=== PATIENT | male | born 1955 | race American Indian/Alaskan Native ===

== ENCOUNTER 2019-08-07 15:50 | Inpatient (IN) | payer OTHER ==
[2019-08-07] MEDS ORDERED: MAGNESIUM SULFATE 2 GM/50 ML BAG IV ONE (16:25)
[2019-08-07] MEDS ORDERED: SODIUM CHLORIDE 0.9% 500 ML 500 ML IV ONE ×2 (16:25→17:15)
[2019-08-07] MEDS ORDERED: ALBUTEROL 2.5 MG/3 ML NEBU IH ONE (16:25)
[2019-08-07] MEDS ORDERED: IPRATROPIUM 0.02% NEBU 2.5 ML IH ONE (16:25)
[2019-08-07] MEDS ORDERED: methylPREDNISolone Sod Succinate 125 MG/2 ML INJ IV ONE (16:25)
--- NOTE | 2019-08-07 16:26 | Emergency Department Report ---
ED General Adult HPI - General Chief complaint: Dyspnea/Respdistress Stated complaint: ANDRES Time Seen by Provider: 08/07/19 16:17 Source: patient, EMS ( EMS documentation not available at time of chart dictation ), RN notes reviewed Mode of arrival: Stretcher Limitations: Physical Limitation - History of Present Illness Initial comments: Patient is a pleasant 63-year-old gentleman. He is not known to myself previously. His past medical history includes tobacco consumption, COPD and hypertension. He presents to the ER with shortness of breath. It started this past weekend. Endorses cough with yellow mucus. Denies physical pain. Denies DVT and pulmonary embolism risk factors. Endorses cough, wheezing and shortness of breath. EMS gave the patient albuterol and steroids prior to arrival. He is still wheezing and symptomatic at this time. -: Gradual, days(s) Consistency: constant Improves with: rest Worsens with: movement - Related Data Allergies Allergy/AdvReac Type Severity Reaction Status Date / Time Penicillins Allergy Unknown Verified 08/07/19 16:35 ED Review of Systems ROS: Stated complaint: ANDRES Other details as noted in HPI Constitutional: malaise, weakness Eyes: denies: eye discharge ENT: congestion Respiratory: cough, shortness of breath, SOB with exertion, SOB at rest, wheezing Cardiovascular: denies: chest pain Gastrointestinal: denies: nausea, vomiting Genitourinary: denies: dysuria Musculoskeletal: myalgia Skin: denies: lesions Neurological: weakness Hematological/Lymphatic: denies: easy bleeding ED Past Medical Hx - Past Medical History Previous Medical History?: Yes Hx Hypertension: Yes Hx COPD: Yes - Surgical History Past Surgical History?: No - Social History Smoking Status: Current Every Day Smoker Substance Use Type: None ED Physical Exam - General Limitations: Physical Limitation General appearance: alert, anxious, in distress - Head Head exam: Present: atraumatic, normocephalic - Eye Eye exam: Present: normal appearance, EOMI. Absent: nystagmus - ENT ENT exam: Present: normal orophraynx, mucous membranes dry, normal external ear exam - Neck Neck exam: Present: normal inspection, full ROM. Absent: tenderness, meningismus - Respiratory Respiratory exam: Present: respiratory distress, wheezes, rhonchi, accessory muscle use. Absent: rales, stridor - Cardiovascular Cardiovascular Exam: Present: regular rate, normal rhythm, normal heart sounds. Absent: bradycardia, tachycardia, irregular rhythm, systolic murmur, diastolic murmur, rubs, gallop - GI/Abdominal GI/Abdominal exam: Present: soft. Absent: distended, tenderness, guarding, rebound, rigid, pulsatile mass - Rectal Rectal exam: Present: deferred - Extremities Exam Extremities exam: Present: normal inspection, full ROM, other (2+ pulses noted in the bilateral upper and lower extremities. There is no palpable cord. negative Homans sign. Muscular compartments are soft. The pelvis is stable.). Absent: calf tenderness - Back Exam Back exam: Present: normal inspection, full ROM. Absent: tenderness, CVA tenderness (R), CVA tenderness (L), paraspinal tenderness, vertebral tenderness - Neurological Exam Neurological exam: Present: alert, other (There is no facial droop. The tongue is midline. Extraocular movements are intact bilaterally. There is 5 out of 5 strength in bilateral upper and lower extremities. Sensation is intact to light touch bilateral upper and lower extremities. ). Absent: motor sensory deficit - Psychiatric Psychiatric exam: Present: anxious - Skin Skin exam: Present: warm, dry, intact, normal color. Absent: rash ED Course Vital Signs 08/07/19 08/07/19 08/07/19 16:23 16:50 17:01 Temperature 100.0 F H Pulse Rate 96 H Pulse Rate [ 93 H Bilateral] Respiratory 18 Rate Respiratory 32 H Rate [Bilateral ] Blood Pressure 135/85 [Right] O2 Sat by Pulse 98 96 Oximetry - Reevaluation(s) Reevaluation #1: 08/07/19 16:55 Differential diagnosis, including but not limited to: COPD, asthma, bronchitis, pneumonia Assessment and plan: Pleasant 63-year-old gentleman with probable COPD exacerbation, with no DVT or pulmonary embolism risk factors, who is low risk by Wells criteria. X-ray of the chest suggest pneumonia versus atelectasis. We will treat him with albuterol, Atrovent, magnesium and fluids, and we will reassess. He was given steroids prior to arrival in the emergency room Reevaluation #2: 08/07/19 18:27 Patient having persistent wheezing. X-ray shows bilateral pneumonia. Given bilateral pneumonia concomitant COPD, heart rate greater than 90, respiratory rate 32, patient meets sirs criteria, with COPD exacerbation. We have recommended admission to the medical service. He is amenable to his hospitalization. Case is presented to the hospital physician, Dr. Flynn. ED Medical Decision Making - Lab Data Result diagrams: 08/07/19 17:26 08/07/19 17:26 Vital Signs 08/07/19 16:23 O2 Sat by Pulse 98 Oximetry Vital Signs 08/07/19 08/07/19 08/07/19 16:23 16:50 17:01 Temperature 100.0 F H Pulse Rate 96 H Pulse Rate [ 93 H Bilateral] Respiratory 18 Rate Respiratory 32 H Rate [Bilateral ] Blood Pressure 135/85 [Right] O2 Sat by Pulse 98 96 Oximetry Lab Results 08/07/19 08/07/19 08/07/19 Range/Units 17:26 17:26 17:26 WBC 8.9 (4.5-11.0) K/mm3 RBC 4.74 (3.65-5.03) M/mm3 Hgb 15.6 H (11.8-15.2) gm/dl Hct 45.5 (35.5-45.6) % MCV 96 H (84-94) fl MCH 33 H (28-32) pg MCHC 34 (32-34) % RDW 13.7 (13.2-15.2) % Plt Count 153 (140-440) K/mm3 PT 14.4 (12.2-14.9) Sec. INR 1.11 (0.87-1.13) Sodium 139 (137-145) mmol/L Potassium 4.2 (3.6-5.0) mmol/L Chloride 100.9 (98-107) mmol/L Carbon Dioxide 21 L (22-30) mmol/L Anion Gap 21 mmol/L BUN 13 (9-20) mg/dL Creatinine 0.9 (0.8-1.5) mg/dL Estimated GFR > 60 ml/min BUN/Creatinine Ratio 14 % Glucose 106 H (75-100) mg/dL Lactic Acid (0.7-2.0) mmol/L Calcium 9.2 (8.4-10.2) mg/dL Magnesium 2.90 H (1.7-2.3) mg/dL Total Creatine Kinase 239 H (55-170) units/L 08/07/19 Range/Units 17:26 WBC (4.5-11.0) K/mm3 RBC (3.65-5.03) M/mm3 Hgb (11.8-15.2) gm/dl Hct (35.5-45.6) % MCV (84-94) fl MCH (28-32) pg MCHC (32-34) % RDW (13.2-15.2) % Plt Count (140-440) K/mm3 PT (12.2-14.9) Sec. INR (0.87-1.13) Sodium (137-145) mmol/L Potassium (3.6-5.0) mmol/L Chloride (98-107) mmol/L Carbon Dioxide (22-30) mmol/L Anion Gap mmol/L BUN (9-20) mg/dL Creatinine (0.8-1.5) mg/dL Estimated GFR ml/min BUN/Creatinine Ratio % Glucose (75-100) mg/dL Lactic Acid 1.30 (0.7-2.0) mmol/L Calcium (8.4-10.2) mg/dL Magnesium (1.7-2.3) mg/dL Total Creatine Kinase (55-170) units/L - EKG Data -: EKG Interpreted by Me EKG shows normal: sinus rhythm Rate: normal - EKG Data When compared to previous EKG there are: previous EKG unavailable 08/07/19 17:06 There is no prior EKG available for comparison. Sinus rhythm, 97 bpm, left axis deviation, QTC prolonged, left anterior fascicular block, premature ventricular contractions. No endorsement of chest pain, not consistent with STEMI - Radiology Data Radiology results: image reviewed interpreted by me: X-ray of the chest, interpreted by me, COPD, hyperinflation, bibasilar atelectasis versus infiltrate, right greater than left Critical Care Time: Yes Critical care time in (mins) excluding proc time.: 35 Critical care attestation.: If time is entered above; I have spent that time in minutes in the direct care of this critically ill patient, excluding procedure time. ED Disposition Clinical Impression: COPD with acute exacerbation Bilateral pneumonia Qualifiers: Pneumonia type: due to unspecified organism Lung location: unspecified part of lung Qualified Code(s): J18.9 - Pneumonia, unspecified organism Disposition: 09 OP ADMIT IP TO THIS HOSP Is pt being admited?: Yes Does the pt Need Aspirin: No Condition: Good Instructions: Chronic Obstructive Pulmonary Disease (ED), Bacterial Pneumonia (ED)
[2019-08-07] MEDS ORDERED: ACETAMINOPHEN 500 MG TAB PO ONE (17:05)
--- NOTE | 2019-08-07 17:10 | XRay Report ---
CHEST 2 VIEWS INDICATION / CLINICAL INFORMATION: sob cough. COMPARISON: None available. FINDINGS: SUPPORT DEVICES: None. HEART / MEDIASTINUM: No significant abnormality. LUNGS / PLEURA: There are pulmonary opacities throughout both lower lobes. It is unclear if this repr esents interstitial pulmonary edema or infection. No significant pleural effusion. The lungs overall are mildly hyperinflated. No pneumothorax. ADDITIONAL FINDINGS: No significant additional findings. IMPRESSION: 1. The lungs are hyperinflated suggesting COPD. Additionally there are bilateral lower lobe pulmonary opacities. I would favor interstitial pulmonary edema over infection. Clinical correlation is recomm ended. Signer Name: Katlin Natarajan MD Signed: 08/07/2019 5:05 PM Workstation Name: [id number]
[2019-08-07] MEDS ORDERED: SODIUM CHLORIDE 0.9% 1000 ML 2,000 ML IV ONE (17:15)
[2019-08-07 17:54] LABS: Hematocrit 45.5 % (35.5-45.6); Hemoglobin 15.6 gm/dl (11.8-15.2); Mean Corpuscular HGB Conc 34 % (32-34); Mean Corpuscular Volume 96 fl (84-94); Platelet Count 153 K/mm3 (140-440); Red Blood Count 4.74 M/mm3 (3.65-5.03); Red Cell Distribution Width 13.7 % (13.2-15.2)
[2019-08-07 18:10] LABS: INR 1.11 (0.87-1.13)
[2019-08-07 18:16] LABS: BUN/Creatinine Ratio 14; Blood Urea Nitrogen 13 mg/dL (9-20); Calcium 9.2 mg/dL (8.4-10.2); Hemolysis Index 1
[2019-08-07] MEDS ORDERED: ONDANSETRON 4 MG/2 ML INJ IV PRN (19:48)
[2019-08-07] MEDS ORDERED: ACETAMINOPHEN 325 MG TAB PO PRN (19:48)
[2019-08-07] MEDS ORDERED: ALBUTEROL 2.5 MG/3 ML NEBU IH PRN (19:48)
--- NOTE | 2019-08-07 19:50 | History and Physical Report ---
History of Present Illness Chief complaint: I get short of breath real easy, I cannot breathe, and I keep coughing History of present illness: 63-year-old male with COPD, nicotine dependence, HTN presents to ED for eval uation. Patient states that he has experienced generalized weakness, productive cough with increased production of yellowish sputum over the past 2 weeks progressively worsening symptoms over the past 4 days. Patient states that he has not experienced any improvement in the aforementioned symptoms with increased nebulizer therapy. EMS notified and upon arrival the patient was found to have a pulse oximetry of 88% and in respiratory distress. The patient was transported to [facility] for further care and evaluation. Patient seen and evaluated in the emergency department. Lab and imaging studies reviewed. Chest x-ray revealed bilateral infiltrates consistent with pneumonia. Patient placed in observation status and admitted to medical floor and initiated on pneumonia protocol due to increased risk of pulmonary decompensation. Patient denies fever, chills, chest pain, palpitations, bright red blood per rectum, skin rash, unilateral leg swelling, calf pain, prolonged travel/immobility, in dividual/family history of DVT/PE/bleeding/blood clotting disorders, or known ill contacts. No prior admission for review. No medication listed at time of admission for reconciliation. Advanced care planning conducted in ED. Medications and Allergies Allergies Allergy/AdvReac Type Severity Reaction Status Date / Time Penicillins Allergy Unknown Verified 08/07/19 16:35 Exam - Constitutional Vitals: Temp Pulse Resp BP Pulse Ox 100.0 F H 102 H 19 153/81 95 08/07/19 17:01 08/07/19 18:45 08/07/19 18:45 08/07/19 18:45 08/07/19 18:45 Results - Labs CBC & Chem 7: 08/07/19 17:26 08/07/19 17:26 Labs: Abnormal lab results 08/07/19 08/07/19 Range/Units 17:26 17:26 Hgb 15.6 H (11.8-15.2) gm/dl MCV 96 H (84-94) fl MCH 33 H (28-32) pg Carbon Dioxide 21 L (22-30) mmol/L Glucose 106 H (75-100) mg/dL Magnesium 2.90 H (1.7-2.3) mg/dL Total Creatine Kinase 239 H (55-170) units/L Assessment and Plan - Patient Problems (1) Bilateral pneumonia Current Visit: Yes Status: Acute Qualifiers: Pneumonia type: due to unspecified organism Lung location: lower lobe of lung Qualified Code(s): J18.9 - Pneumonia, unspecified organism Plan to address problem: Pneumonia protocol: Chest x-ray, supplemental oxygen, nebulizer therapy, CBC, CMP, IV antibiotic therapy, pulse oximetry, blood culture, sputum culture, smoking cessation counseling. (2) HTN (hypertension) Current Visit: Yes Status: Acute Qualifiers: Hypertension type: essential hypertension Qualified Code(s): I10 - Essential (primary) hypertension Plan to address problem: Monitor BP every shift, continue medical management. (3) Nicotine dependence Current Visit: Yes Status: Acute Qualifiers: Nicotine product type: cigarettes Substance use status: in withdrawal Qualified Code(s): F17.213 - Nicotine dependence, cigarettes, with withdrawal Plan to address problem: Supportive care, smoking cessation counseling, +15 minutes (4) Respiratory distress Current Visit: Yes Status: Acute Plan to address problem: ABG, submental oxygen, nebulizer therapy, Hydromet for recurrent cough, chest x- ray, home oxygen evaluation in a.m. (5) COPD with acute exacerbation Current Visit: Yes Status: Acute Plan to address problem: Empiric IV antibiotic therapy, IV steroid therapy, chest x-ray, smoking cessation counseling, pulse oximetry, nebulizer therapy, noninvasive positive pressure ventilation as clinically indicated. (6) DVT prophylaxis Current Visit: Yes Status: Acute Plan to address problem: SCD to bilateral lower extremities while in bed, patient is ambulatory.
[2019-08-07] MEDS ORDERED: VANCOMYCIN 2,000 MG in SODIUM CHLORIDE 0.9% 500 ML 500 ML IV ONE (20:00)
[2019-08-07] MEDS ORDERED: VANCOMYCIN PHARMACY TO DOSE IV SCH (20:00)
[2019-08-07 23:02] LABS: Hemoglobin 15.2 gm/dl (11.8-15.2); Red Blood Count 4.65 M/mm3 (3.65-5.03)
[2019-08-07 23:03] LABS: Hematocrit 44.5 % (35.5-45.6); Mean Corpuscular HGB Conc 34 % (32-34); Mean Corpuscular Volume 96 fl (84-94); Mean Platelet Volume 9.3 fl (6-12); Platelet Count 146 K/mm3 (140-440); Red Cell Distribution Width 14.2 % (13.2-15.2)
[2019-08-07] MEDS ORDERED: ACETAMINOPHEN 325 MG TAB ONE (23:35)
[2019-08-07] MEDS: SODIUM CHLORIDE 0.9% 1000 ML 1,000 ML IV SCH (23:55)
[2019-08-08 00:53] LABS: Basophils % (Manual) 0 % (0.0-1.8); Eosinophils % (Manual) 0 % (0.0-4.3); Monocytes % (Manual) 0 % (0.0-7.3); Total Cells Counted 100
[2019-08-08 00:54] LABS: Anisocytosis Few
[2019-08-08 00:55] LABS: Platelet Estimate Consistent w Auto
[2019-08-08] MEDS: HYDROcodone/HOMATROPINE 5-1.5MG /5 ML ORAL LIQD UNIT DOSE PO PRN ×2 (01:38→15:43)
[2019-08-08] MEDS: SODIUM CHLORIDE 0.9% 1000 ML 1,000 ML IV SCH ×2 (01:41→15:44)
[2019-08-08 04:50] LABS: Basophils % (Auto) 0.2 % (0.0-1.8); Hematocrit 44.4 % (35.5-45.6); Hemoglobin 15.3 gm/dl (11.8-15.2); Lymphocytes # (Auto) 0.6 K/mm3 (1.2-5.4); Lymphocytes % (Auto) 8.3 % (13.4-35.0); Mean Corpuscular HGB Conc 35 % (32-34); Mean Corpuscular Volume 95 fl (84-94); Monocytes # (Auto) 0.2 K/mm3 (0.0-0.8); Monocytes % (Auto) 2.7 % (0.0-7.3); Platelet Count 155 K/mm3 (140-440); Red Blood Count 4.67 M/mm3 (3.65-5.03); Red Cell Distribution Width 13.7 % (13.2-15.2)
[2019-08-08 05:11] LABS: BUN/Creatinine Ratio 19; Blood Urea Nitrogen 17 mg/dL (9-20); Calcium 9.5 mg/dL (8.4-10.2); Hemolysis Index 4
[2019-08-08] MEDS ORDERED: ALBUTEROL 2.5 MG/3 ML NEBU IH PRN (07:44)
--- NOTE | 2019-08-08 07:45 | Progress Note ---
Assessment and Plan Assessment and plan: Patient is a 64 yo man with a history of tobacco dependency, COPD and hypertension who presents to [facility] ED with sob and cough. EMS found pulse ox 88%. HR 102 T 100.0F, RR up to 27. * CXR 2v Impression: The lungs are hyperinflated suggesting COPD, additionally there are bilateral lower lobe opacities, favor interstitial pulmonary edema over infection. * CT chest without contrast IMPRESSION: 1. Left lower lobe pulmonary nodule- "incidental pulmonary nodule" 1.03 cm, please see recommended guidelines 2. Diffuse chronic lung disease as noted 3. Mediastinal lymphadenopathy 4. B ilateral nephrolithiasis 5. Right renal cyst 6 hepatic cyst. [Solid nodules Single Single solid nodule <6 mm (<100 mm3) low-risk patients: no routine follow-up required high-risk patients: optional CT at 12 months (particularly with suspicious nodule morphology and/or upper lobe location; see "risk assessment" below) Solitary solid nodule 6-8 mm (100-250 mm3) low-risk patients: CT at 6-12 months, then [address] CT at 18-24 months high-risk patients: CT at 6-12 months, then CT at 18-24 months Solitary solid nodule >8 mm (>250 mm3) low-risk and high-risk patients: consider CT at 3 months, PET/CT, or tissue sampling] Acute hypoxic respiratory failure: treat with O2, treat the underlying copd AE COPD: iv steriod, duoneb, empiric abx SIRS, with organ dysfunction, poa; treat the COPD Left Lung nodule: consulted Pulmonology Tobacco dependency: 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 History Interval history: Patient was seen and examined. Follow-up on current diagnosis of COPD. Overnight uneventful as no events directly reported to me. Patient denies any chest pain, nausea/vomiting or severe headaches. Imaging, nursing note, chart, labs and old chart reviewed. Discussed with patient. Hospitalist Physical - Physical exam Narrative exam: Gen: WDWN, NAD, Awake, Alert, Orientated HEENT: NCAT, EOMI, PERRL, OP Clear Neck: supple, no adenopathy, no thyromegaly, no JVD CVS/Heart: RRR, normal S1S2, pulses present bilaterally Chest/Lungs: diminished bs bilaterally, Symmetrical chest expansion, good air entry bilaterally GI/Abdomen: soft, NTND, good bowel sounds, no guarding or rebound /Bladder: no suprapubic tenderness, no CVA or paraspinal tenderness Extermity/Skin: no c/c/e, no obvious rash MSK: FROM x 4 Neuro: CN 2-12 grossly intact, no new focal deficits Psych: calm - Constitutional Vitals: Temp Pulse Resp BP Pulse Ox 97.6 F 72 20 153/99 99 08/08/19 06:16 08/08/19 07:32 08/08/19 07:32 08/08/19 06:16 08/08/19 07:38 Results - Labs CBC & Chem 7: 08/08/19 04:31 08/08/19 04:31 Labs: Laboratory Last Values WBC 6.7 K/mm3 (4.5-11.0) 08/08/19 04:31 RBC 4.67 M/mm3 (3.65-5.03) 08/08/19 04:31 Hgb 15.3 gm/dl (11.8-15.2) H 08/08/19 04:31 Hct 44.4 % (35.5-45.6) 08/08/19 04:31 MCV 95 fl (84-94) H 08/08/19 04:31 MCH 33 pg (28-32) H 08/08/19 04:31 MCHC 35 % (32-34) H 08/08/19 04:31 RDW 13.7 % (13.2-15.2) 08/08/19 04:31 Plt Count 155 K/mm3 (140-440) 08/08/19 04:31 Lymph % (Auto) 8.3 % (13.4-35.0) L 08/08/19 04:31 [place] % (Auto) 2.7 % (0.0-7.3) 08/08/19 04:31 Eos % (Auto) 0.0 % (0.0-4.3) 08/08/19 04:31 Baso % (Auto) 0.2 % (0.0-1.8) 08/08/19 04:31 Lymph # 0.6 K/mm3 (1.2-5.4) L 08/08/19 04:31 Stanly # 0.2 K/mm3 (0.0-0.8) 08/08/19 04:31 Eos # 0.0 K/mm3 (0.0-0.4) 08/08/19 04:31 Baso # 0.0 K/mm3 (0.0-0.1) 08/08/19 04:31 Add Manual Diff Complete 08/07/19 22:30 Total Counted 100 08/07/19 22:30 Seg Neutrophils % 88.8 % (40.0-70.0) H 08/08/19 04:31 Seg Neuts % (Manual) 96.0 % (40.0-70.0) H 08/07/19 22:30 Band Neutrophils % 0 % 08/07/19 22:30 Lymphocytes % (Manual) 4.0 % (13.4-35.0) L 08/07/19 22:30 Reactive Lymphs % (Man) 0 % 08/07/19 22:30 Monocytes % (Manual) 0 % (0.0-7.3) 08/07/19 22:30 Eosinophils % (Manual) 0 % (0.0-4.3) 08/07/19 22:30 Basophils % (Manual) 0 % (0.0-1.8) 08/07/19 22:30 Metamyelocytes % 0 % 08/07/19 22:30 Myelocytes % 0 % 08/07/19 22:30 Promyelocytes % 0 % 08/07/19 22:30 Blast Cells % 0 % 08/07/19 22:30 Nucleated RBC % Not Reportable 08/07/19 22:30 Seg Neutrophils # 5.9 K/mm3 (1.8-7.7) 08/08/19 04:31 Seg Neutrophils # Man 7.2 K/mm3 (1.8-7.7) 08/07/19 22:30 Band Neutrophils # 0.0 K/mm3 08/07/19 22:30 Lymphocytes # (Manual) 0.3 K/mm3 (1.2-5.4) L 08/07/19 22:30 Abs React Lymphs (Man) 0.0 K/mm3 08/07/19 22:30 Monocytes # (Manual) 0.0 K/mm3 (0.0-0.8) 08/07/19 22:30 Eosinophils # (Manual) 0.0 K/mm3 (0.0-0.4) 08/07/19 22:30 Basophils # (Manual) 0.0 K/mm3 (0.0-0.1) 08/07/19 22:30 Metamyelocytes # 0.0 K/mm3 08/07/19 22:30 Myelocytes # 0.0 K/mm3 08/07/19 22:30 Promyelocytes # 0.0 K/mm3 08/07/19 22:30 Blast Cells # 0.0 K/mm3 08/07/19 22:30 WBC Morphology Not Reportable 08/07/19 22:30 Hypersegmented Neuts Not Reportable 08/07/19 22:30 Hyposegmented Neuts Not Reportable 08/07/19 22:30 Hypogranular Neuts Not Reportable 08/07/19 22:30 Smudge Cells Not Reportable 08/07/19 22:30 Toxic Granulation Not Reportable 08/07/19 22:30 Toxic Vacuolation Not Reportable 08/07/19 22:30 Dohle Bodies Not Reportable 08/07/19 22:30 Pelger-Huet Anomaly Not Reportable 08/07/19 22:30 Jamel Rods Not Reportable 08/07/19 22:30 Platelet Estimate Consistent w auto 08/07/19 22:30 Clumped Platelets Not Reportable 08/07/19 22:30 Plt Clumps, EDTA Not Reportable 08/07/19 22:30 Large Platelets Not Reportable 08/07/19 22:30 Giant Platelets Not Reportable 08/07/19 22:30 Platelet Satelliting Not Reportable 08/07/19 22:30 Plt Morphology Comment Not Reportable 08/07/19 22:30 RBC Morphology Not Reportable 08/07/19 22:30 Dimorphic RBCs Not Reportable 08/07/19 22:30 Polychromasia Not Reportable 08/07/19 22:30 Hypochromasia Not Reportable 08/07/19 22:30 Poikilocytosis Not Reportable 08/07/19 22:30 Anisocytosis Few 08/07/19 22:30 Microcytosis Not Reportable 08/07/19 22:30 Macrocytosis Not Reportable 08/07/19 22:30 Spherocytes Not Reportable 08/07/19 22:30 Pappenheimer Bodies Not Reportable 08/07/19 22:30 Sickle Cells Not Reportable 08/07/19 22:30 Target Cells Not Reportable 08/07/19 22:30 Tear Drop Cells Not Reportable 08/07/19 22:30 Ovalocytes Not Reportable 08/07/19 22:30 Helmet Cells Not Reportable 08/07/19 22:30 [place] Bodies Not Reportable 08/07/19 22:30 [place] Rings Not Reportable 08/07/19 22:30 Nika Cells Not Reportable 08/07/19 22:30 Bite Cells Not Reportable 08/07/19 22:30 Crenated Cell Not Reportable 08/07/19 22:30 Elliptocytes Not Reportable 08/07/19 22:30 Acanthocytes (Spur) Not Reportable 08/07/19 22:30 Rouleaux Not Reportable 08/07/19 22:30 Hemoglobin C Crystals Not Reportable 08/07/19 22:30 Schistocytes Not Reportable 08/07/19 22:30 Malaria parasites Not Reportable 08/07/19 22:30 Marek Bodies Not Reportable 08/07/19 22:30 Hem Pathologist Commnt No 08/07/19 22:30 PT 14.4 Sec. (12.2-14.9) 08/07/19 17:26 INR 1.11 (0.87-1.13) 08/07/19 17:26 Sodium 138 mmol/L (137-145) 08/08/19 04:31 Potassium 5.0 mmol/L (3.6-5.0) 08/08/19 04:31 Chloride 101.4 mmol/L (98-107) 08/08/19 04:31 Carbon Dioxide 20 mmol/L (22-30) L 08/08/19 04:31 Anion Gap 22 mmol/L 08/08/19 04:31 BUN 17 mg/dL (9-20) 08/08/19 04:31 Creatinine 0.9 mg/dL (0.8-1.5) 08/08/19 04:31 Estimated GFR > 60 ml/min 08/08/19 04:31 BUN/Creatinine Ratio 19 % 08/08/19 04:31 Glucose 137 mg/dL (75-100) H 08/08/19 04:31 Lactic Acid 1.30 mmol/L (0.7-2.0) 08/07/19 17:26 Calcium 9.5 mg/dL (8.4-10.2) 08/08/19 04:31 Magnesium 2.90 mg/dL (1.7-2.3) H 08/07/19 17:26 Total Creatine Kinase 239 units/L (55-170) H 08/07/19 17:26 Active Medications - Current Medications Current Medications: Generic Name Dose Route Start Last Admin Trade Name Freq PRN Reason Stop Dose Admin Acetaminophen 650 mg 08/07/19 19:48 08/07/19 23:56 Tylenol PO 650 mg Q4H PRN Administration Pain MILD(1-3)/Fever >100.5/GONCALVES Albuterol 2.5 mg 08/07/19 19:48 08/08/19 07:32 Proventil IH 2.5 mg Q4HRT PRN Administration Shortness Of Breath Hydrocodone Bit/Homatropine Methylb 10 ml 08/07/19 19:52 08/08/19 01:38 Hydromet PO 10 ml Q12H PRN Administration Cough Sodium Chloride 1,000 mls @ 100 mls/hr 08/07/19 20:00 08/08/19 01:41 Nacl 0.9% 1000 Ml IV 100 mls/hr DIRECT FELIPE Administration Levofloxacin/Dextrose 750 mg in 150 mls @ 100 mls/hr 08/08/19 10:00 Levaquin 750mg/150ml IV Q24HR FELIPE Protocol Vancomycin HCl 1,500 mg/ 530 mls @ 333.333 mls/hr 08/08/19 10:00 Sodium Chloride IV Q12H FELIPE Methylprednisolone Sodium Succinate 20 mg 08/08/19 10:00 Solu-Medrol IV Q24HR FELIPE Ondansetron HCl 4 mg 08/07/19 19:48 Zofran IV Q8H PRN Nausea And Vomiting Sodium Chloride 10 ml 08/07/19 22:00 08/08/19 00:01 Sodium Chloride Flush Syringe 10 Ml IV 10 ml BID FELIPE Administration Sodium Chloride 10 ml 08/07/19 19:48 Sodium Chloride Flush Syringe 10 Ml IV PRN PRN LINE FLUSH
[2019-08-08 08:23] LABS: ABG Base Excess -3.1 mmol/L (-2.0-3.0); ABG HCO3 22.7 mmol/L (20.0-26.0); ABG Methemoglobin 0.5 % (0.0-1.5); ABG Oxygen Saturation 97.2 % (95.0-99.0); ABG PCO2 43.3 mm Hg; ABG PH 7.337 pH Units (7.350-7.450); ABG PO2 98.4 mm Hg (80.0-90.0)
--- NOTE | 2019-08-08 09:24 | Cat Scan Report ---
CT CHEST WITHOUT CONTRAST INDICATION / CLINICAL INFORMATION: cough, sob. TECHNIQUE: Axial CT images were obtained through the chest without contrast. All CT scans at this location are p erformed using CT dose reduction for ALARA by means of automated exposure control. COMPARISON: Chest imaging study dated 08/07/2019 FINDINGS: HEART: No significant abnormality. THORACIC AORTA: No significant abnormality. MEDIASTINUM and REESE: Several slightly enlarged mediastinal lymph nodes present, for example, subcari nal lymph node measures 1.21 cm in short axis. Several small calcified mediastinal lymph nodes presen t. LUNGS: There is a 1.03 cm pulmonary nodule left lower lobe best delineated image 51 series 4. Severe chronic lung disease is present with multiple blebs and upper lobe bullae. No acute air space or inte rstitial disease. PLEURA: No significant pleural effusion. No pneumothorax. ADDITIONAL FINDINGS: None. UPPER ABDOMEN: 2.3 cm hepatic cyst left lobe liver. 3 cm right renal cyst is present. Bilateral nephr olithiasis present SKELETAL SYSTEM: No significant abnormality. IMPRESSION: 1. Left lower lobe pulmonary nodule-"incidental pulmonary nodule" please see recommended guidelines 2. Diffuse chronic lung disease as noted 3. Mediastinal lymphadenopathy 4. Bilateral nephrolithiasis 5. Right renal cyst 6 hepatic cyst Fleischner Society pulmonary nodule recommendations Solid nodules Single Single solid nodule <6 mm (<100 mm3) low-risk patients: no routine follow-up required high-risk patients: optional CT at 12 months (particularly with suspicious nodule morphology and/or u pper lobe location; see "risk assessment" below) Solitary solid nodule 6-8 mm (100-250 mm3) low-risk patients: CT at 6-12 months, then consider CT at 18-24 months high-risk patients: CT at 6-12 months, then CT at 18-24 months Solitary solid nodule >8 mm (>250 mm3) low-risk and high-risk patients: consider CT at 3 months, PET/CT, or tissue sampling Signer Name: Sridhar Crowley MD Signed: 08/08/2019 9:20 AM Workstation Name: [id number]
[2019-08-08] MEDS: methylPREDNISolone Sod Succinate 40 MG/1 ML INJ IV SCH (10:40)
[2019-08-08] MEDS: IPRATROPIUM/ALBUTEROL SULFATE 3 ML AMPUL.NEB IH SCH ×3 (12:07→20:05)
[2019-08-08] MEDS: VANCOMYCIN 1,500 MG in SODIUM CHLORIDE 0.9% 500 ML 500 ML IV SCH ×2 (12:28→22:33)
[2019-08-08] MEDS ORDERED: hydrALAZINE 20 MG/1 ML INJ IV PRN (17:03)
[2019-08-08] MEDS: LISINOPRIL 20 MG TAB PO SCH (17:42)
[2019-08-08] MEDS: ARFORMOTEROL 15 MCG/2 ML NEBU IH SCH (20:05)
[2019-08-08] MEDS: BUDESONIDE 0.5 MG/2 ML NEBU IH SCH (20:05)
[2019-08-09] MEDS: IPRATROPIUM/ALBUTEROL SULFATE 3 ML AMPUL.NEB IH SCH ×6 (01:52→20:22)
[2019-08-09] MEDS: SODIUM CHLORIDE 0.9% 1000 ML 1,000 ML IV SCH (04:43)
[2019-08-09] MEDS: BUDESONIDE 0.5 MG/2 ML NEBU IH SCH ×2 (07:15→20:22)
[2019-08-09] MEDS: ARFORMOTEROL 15 MCG/2 ML NEBU IH SCH ×2 (07:16→20:22)
[2019-08-09] MEDS: methylPREDNISolone Sod Succinate 40 MG/1 ML INJ IV SCH ×3 (10:31→23:42)
[2019-08-09] MEDS: LISINOPRIL 20 MG TAB PO SCH (10:33)
[2019-08-09] MEDS: HEPARIN 5,000 UNIT/1 ML VIAL SUB-Q SCH ×2 (10:33→23:50)
--- NOTE | 2019-08-09 11:59 | Event Note ---
Date: 08/09/[address] with Radiology here. Left lower lobe airspace disease looks more like an infiltrate than a true nodule. Lymphadenopathy called is borderline as well. Will need repeat imaging in about 6-8 months. At this time, nothing to do. All other management per primary team. Call if questions.
[2019-08-09] MEDS: VANCOMYCIN 1,500 MG in SODIUM CHLORIDE 0.9% 500 ML 500 ML IV SCH (13:49)
[2019-08-09] MEDS ORDERED: POLYETHYLENE GLYCOL 3350 17 GM POWDER PO PRN (14:30)
--- NOTE | 2019-08-09 15:33 | Progress Note ---
Assessment and Plan Assessment and plan: 64 yo man with a history of tobacco dependency, COPD and hypertension who presents to [facility] ED with sob and cough. EMS found pulse ox 88%. HR 102 T 100.0F, RR up to 27. * CXR 2v Impression: The lungs are hyperinflated suggesting COPD, additionally there are bilateral lower lobe opacities, favor interstitial pulmonary edema over infection. * CT chest without contrast IMPRESSION: 1. Left lower lobe pulmonary nodule- "incidental pulmonary nodule" 1.03 cm, please see recommended guidelines 2. Diffuse chronic lung disease as noted 3. Mediastinal lymphadenopathy 4. Bilateral nephrolithiasis 5. Right renal cyst 6 hepatic cyst. [Solid nodules Single Single solid nodule <6 mm (<100 mm3) low-risk patients: no routine follow-up required high-risk patients: optional CT at 12 months (particularly with suspicious nodule morphology and/or upper lobe location; see "risk assessment" below) Solitary solid nodule 6-8 mm (100-250 mm3) low-risk patients: CT at 6-12 months, then [address] CT at 18-24 months high-risk patients: CT at 6-12 months, then CT at 18-24 months Solitary solid nodule >8 mm (>250 mm3) low-risk and high-risk patients: consider CT at 3 months, PET/CT , or tissue sampling] Acute hypoxic respiratory failure: treat with O2, treat the underlying copd AE COPD: iv steriod, duoneb, empiric abx Pneumonia/sepsis; continue antibiotics Possible left lung nodule, pulmonology input appreciated, it is more consistent with infiltrates. Will need repeat imaging in 3 to 6 months. Tobacco abuse/dependence Smoking cessation counseling performed for 10 minutes, nicotine patches when necessary DVT ppx reviewed History Interval history: Review of systems Constitutional: No fevers, no malaise, no joint pains CVS: No chest pain, no orthopnea, no dyspnea on exertion, no pedal edema GI: No abdominal pain, no diarrhea, no vomiting, no constipation Respiratory: Continues to complain of shortness of breath and wheezing Hospitalist Physical - Physical exam Narrative exam: General.: Appears well, no distress, nontoxic HEENT: Moist mucous membranes, extraocular muscles intact, no lymphadenopathy Neck: supple Cardiac: S1-S2 heard Lungs: Decreased air entry, wheezing which is worse in the bases Abdomen: soft , nontender, nondistended, bowel sounds positive Extremities: no edema clubbing or cyanosis Skin: no rash or lesions Neurologic: no gross focal deficits Psych: calm, and cooperative - Constitutional Vitals: Temp Pulse Resp BP Pulse Ox 97.6 F 74 20 151/95 95 08/09/19 06:06 08/09/19 11:35 08/09/19 11:35 08/09/19 10:33 08/09/19 07:14 Results - Labs CBC & Chem 7: 08/08/19 04:31 08/08/19 04:31 Labs: Laboratory Last Values WBC 6.7 K/mm3 (4.5-11.0) 08/08/19 04:31 RBC 4.67 M/mm3 (3.65-5.03) 08/08/19 04:31 Hgb 15.3 gm/dl (11.8-15.2) H 08/08/19 04:31 Hct 44.4 % (35.5-45.6) 08/08/19 04:31 MCV 95 fl (84-94) H 08/08/19 04:31 MCH 33 pg (28-32) H 08/08/19 04:31 MCHC 35 % (32-34) H 08/08/19 04:31 RDW 13.7 % (13.2-15.2) 08/08/19 04:31 Plt Count 155 K/mm3 (140-440) 08/08/19 04:31 Lymph % (Auto) 8.3 % (13.4-35.0) L 08/08/19 04:31 Ritchie % (Auto) 2.7 % (0.0-7.3) 08/08/19 04:31 Eos % (Auto) 0.0 % (0.0-4.3) 08/08/19 04:31 Baso % (Auto) 0.2 % (0.0-1.8) 08/08/19 04:31 Lymph # 0.6 K/mm3 (1.2-5.4) L 08/08/19 04:31 Ritchie # 0.2 K/mm3 (0.0-0.8) 08/08/19 04:31 Eos # 0.0 K/mm3 (0.0-0.4) 08/08/19 04:31 Baso # 0.0 K/mm3 (0.0-0.1) 08/08/19 04:31 Add Manual Diff Complete 08/07/19 22:30 Total Counted 100 08/07/19 22:30 Seg Neutrophils % 88.8 % (40.0-70.0) H 08/08/19 04:31 Seg Neuts % (Manual) 96.0 % (40.0-70.0) H 08/07/19 22:30 Band Neutrophils % 0 % 08/07/19 22:30 Lymphocytes % (Manual) 4.0 % (13.4-35.0) L 08/07/19 22:30 Reactive Lymphs % (Man) 0 % 08/07/19 22:30 Monocytes % (Manual) 0 % (0.0-7.3) 08/07/19 22:30 Eosinophils % (Manual) 0 % (0.0-4.3) 08/07/19 22:30 Basophils % (Manual) 0 % (0.0-1.8) 08/07/19 22:30 Metamyelocytes % 0 % 08/07/19 22:30 Myelocytes % 0 % 08/07/19 22:30 Promyelocytes % 0 % 08/07/19 22:30 Blast Cells % 0 % 08/07/19 22:30 Nucleated RBC % Not Reportable 08/07/19 22:30 Seg Neutrophils # 5.9 K/mm3 (1.8-7.7) 08/08/19 04:31 Seg Neutrophils # Man 7.2 K/mm3 (1.8-7.7) 08/07/19 22:30 Band Neutrophils # 0.0 K/mm3 08/07/19 22:30 Lymphocytes # (Manual) 0.3 K/mm3 (1.2-5.4) L 08/07/19 22:30 Abs React Lymphs (Man) 0.0 K/mm3 08/07/19 22:30 Monocytes # (Manual) 0.0 K/mm3 (0.0-0.8) 08/07/19 22:30 Eosinophils # (Manual) 0.0 K/mm3 (0.0-0.4) 08/07/19 22:30 Basophils # (Manual) 0.0 K/mm3 (0.0-0.1) 08/07/19 22:30 Metamyelocytes # 0.0 K/mm3 08/07/19 22:30 Myelocytes # 0.0 K/mm3 08/07/19 22:30 Promyelocytes # 0.0 K/mm3 08/07/19 22:30 Blast Cells # 0.0 K/mm3 08/07/19 22:30 WBC Morphology Not Reportable 08/07/19 22:30 Hypersegmented Neuts Not Reportable 08/07/19 22:30 Hyposegmented Neuts Not Reportable 08/07/19 22:30 Hypogranular Neuts Not Reportable 08/07/19 22:30 Smudge Cells Not Reportable 08/07/19 22:30 Toxic Granulation Not Reportable 08/07/19 22:30 Toxic Vacuolation Not Reportable 08/07/19 22:30 Dohle Bodies Not Reportable 08/07/19 22:30 Pelger-Huet Anomaly Not Reportable 08/07/19 22:30 Jamel Rods Not Reportable 08/07/19 22:30 Platelet Estimate Consistent w auto 08/07/19 22:30 Clumped Platelets Not Reportable 08/07/19 22:30 Plt Clumps, EDTA Not Reportable 08/07/19 22:30 Large Platelets Not Reportable 08/07/19 22:30 Giant Platelets Not Reportable 08/07/19 22:30 Platelet Satelliting Not Reportable 08/07/19 22:30 Plt Morphology Comment Not Reportable 08/07/19 22:30 RBC Morphology Not Reportable 08/07/19 22:30 Dimorphic RBCs Not Reportable 08/07/19 22:30 Polychromasia Not Reportable 08/07/19 22:30 Hypochromasia Not Reportable 08/07/19 22:30 Poikilocytosis Not Reportable 08/07/19 22:30 Anisocytosis Few 08/07/19 22:30 Microcytosis Not Reportable 08/07/19 22:30 Macrocytosis Not Reportable 08/07/19 22:30 Spherocytes Not Reportable 08/07/19 22:30 Pappenheimer Bodies Not Reportable 08/07/19 22:30 Sickle Cells Not Reportable 08/07/19 22:30 Target Cells Not Reportable 08/07/19 22:30 Tear Drop Cells Not Reportable 08/07/19 22:30 Ovalocytes Not Reportable 08/07/19 22:30 Helmet Cells Not Reportable 08/07/19 22:30 Joe-Quinnesec Bodies Not Reportable 08/07/19 22:30 [place] Rings Not Reportable 08/07/19 22:30 [place] Cells Not Reportable 08/07/19 22:30 Bite Cells Not Reportable 08/07/19 22:30 Crenated Cell Not Reportable 08/07/19 22:30 Elliptocytes Not Reportable 08/07/19 22:30 Acanthocytes (Spur) Not Reportable 08/07/19 22:30 Rouleaux Not Reportable 08/07/19 22:30 Hemoglobin C Crystals Not Reportable 08/07/19 22:30 Schistocytes Not Reportable 08/07/19 22:30 Malaria parasites Not Reportable 08/07/19 22:30 Marek Bodies Not Reportable 08/07/19 22:30 Hem Pathologist Commnt No 08/07/19 22:30 PT 14.4 Sec. (12.2-14.9) 08/07/19 17: INR 1.11 (0.87-1.13) 08/07/19 17:26 ABG pH 7.337 pH Units (7.350-7.450) L 08/08/19 08:13 ABG pCO2 43.3 mm Hg 08/08/19 08:13 ABG pO2 98.4 mm Hg (80.0-90.0) H 08/08/19 08:13 ABG HCO3 22.7 mmol/L (20.0-26.0) 08/08/19 08:13 ABG O2 Saturation 97.2 % (95.0-99.0) 08/08/19 08:13 ABG O2 Content 21.0 (0.0-44) 08/08/19 08:13 ABG Base Excess -3.1 mmol/L (-2.0-3.0) L 08/08/19 08:13 ABG Hemoglobin 15.7 gm/dl (14.0-18.0) 08/08/19 08:13 ABG Carboxyhemoglobin 2.1 % (0.0-5.0) 08/08/19 08:13 ABG Methemoglobin 0.5 % (0.0-1.5) 08/08/19 08:13 Oxyhemoglobin 94.7 % (95.0-99.0) L 08/08/19 08:13 FiO2 32 % 08/08/19 08:13 Sodium 138 mmol/L (137-145) 08/08/19 04:31 Potassium 5.0 mmol/L (3.6-5.0) 08/08/19 04:31 Chloride 101.4 mmol/L (98-107) 08/08/19 04:31 Carbon Dioxide 20 mmol/L (22-30) L 08/08/19 04:31 Anion Gap 22 mmol/L 08/08/19 04:31 BUN 17 mg/dL (9-20) 08/08/19 04:31 Creatinine 0.9 mg/dL (0.8-1.5) 08/08/19 04:31 Estimated GFR > 60 ml/min 08/08/19 04:31 BUN/Creatinine Ratio 19 % 08/08/19 04:31 Glucose 137 mg/dL (75-100) H 08/08/19 04:31 Lactic Acid 1.30 mmol/L (0.7-2.0) 08/07/19 17:26 Calcium 9.5 mg/dL (8.4-10.2) 08/08/19 04:31 Magnesium 2.90 mg/dL (1.7-2.3) H 08/07/19 17:26 Total Creatine Kinase 239 units/L (55-170) H 08/07/19 17:26 Active Medications - Current Medications Current Medications: Generic Name Dose Route Start Last Admin Trade Name Freq PRN Reason Stop Dose Admin Acetaminophen 650 mg 08/07/19 19:48 08/07/19 23:56 Tylenol PO 650 mg Q4H PRN Administration Pain MILD(1-3)/Fever >100.5/GONCALVES Albuterol 2.5 mg 08/08/19 07:44 08/08/19 16:21 Proventil IH 2.5 mg Q4HRT PRN Administration Shortness Of Breath Albuterol/Ipratropium 1 ampul 08/08/19 14:00 08/09/19 14:23 Duoneb *Not For Prn Use* IH Not Given Q6HRT FELIPE Arformoterol Tartrate 15 mcg 08/08/19 20:00 08/09/19 07:16 Brovana Nebu IH 15 mcg Q12HRT FELIPE Administration Budesonide 0.5 mg 08/08/19 20:00 08/09/19 07:15 Pulmicort IH 0.5 mg Q12HRT FELIPE Administration Heparin Sodium (Porcine) 5,000 unit 08/09/19 10:00 08/09/19 10:33 Heparin SUB-Q 5,000 unit Q12HR FELIPE Administration Hydralazine HCl 10 mg 08/08/19 17:03 Apresoline IV Q4HR PRN Blood Pressure Hydrocodone Bit/Homatropine Methylb 10 ml 08/07/19 19:52 08/08/19 15:43 Hydromet PO 10 ml Q12H PRN Administration Cough Levofloxacin/Dextrose 750 mg in 150 mls @ 100 mls/hr 08/08/19 10:00 08/09/19 10:29 Levaquin 750mg/150ml IV 100 mls/hr Q24HR FELIPE Administration Protocol Vancomycin HCl 1,500 mg/ 530 mls @ 333.333 mls/hr 08/08/19 10:00 08/09/19 13:49 Sodium Chloride IV 333.333 mls/hr Q12H FELIPE Administration Lisinopril 20 mg 08/08/19 18:00 08/09/19 10:33 Zestril PO 20 mg DAILY FELIPE Administration Methylprednisolone Sodium Succinate 40 mg 08/09/19 15:00 Solu-Medrol IV Q8HR FELIPE Ondansetron HCl 4 mg 08/07/19 19:48 Zofran IV Q8H PRN Nausea And Vomiting Polyethylene Glycol 17 gm 08/09/19 14:30 Miralax 3350 PO BID PRN Constipation Sodium Chloride 10 ml 08/07/19 22:00 08/09/19 10:33 Sodium Chloride Flush Syringe 10 Ml IV 10 ml BID FELIPE Administration Sodium Chloride 10 ml 08/07/19 19:48 Sodium Chloride Flush Syringe 10 Ml IV PRN PRN LINE FLUSH
[2019-08-10] MEDS: IPRATROPIUM/ALBUTEROL SULFATE 3 ML AMPUL.NEB IH SCH ×4 (02:09→21:28)
[2019-08-10] MEDS: VANCOMYCIN 1,500 MG in SODIUM CHLORIDE 0.9% 500 ML 500 ML IV SCH ×2 (03:50→09:36)
[2019-08-10] MEDS: methylPREDNISolone Sod Succinate 40 MG/1 ML INJ IV SCH ×2 (05:49→13:28)
[2019-08-10] MEDS: ARFORMOTEROL 15 MCG/2 ML NEBU IH SCH ×2 (08:15→21:28)
[2019-08-10] MEDS: BUDESONIDE 0.5 MG/2 ML NEBU IH SCH ×2 (08:15→21:28)
[2019-08-10] MEDS: HEPARIN 5,000 UNIT/1 ML VIAL SUB-Q SCH (09:36)
[2019-08-10] MEDS: LISINOPRIL 20 MG TAB PO SCH (09:39)
--- NOTE | 2019-08-10 15:22 | Discharge Summary ---
Providers - Providers Date of Admission: 08/08/19 07:30 Attending physician: MARIA ANTONIA EDWARDS MD Primary care physician: INSURANCE CONSULTANT Hospitalization Condition: Good Hospital course: 64 yo man with a history of tobacco dependency, COPD and hypertension who presents to [facility] ED with sob and cough. EMS found pulse ox 88%. HR 102 T 100.0F, RR up to 27. * CXR 2v Impression: The lungs are hyperinflated suggesting COPD, additionally there are bilateral lower lobe opacities, favor interstitial pulmonary edema over infection. * CT chest without contrast IMPRESSION: 1. Left lower lobe pulmonary nodule- "incidental pulmonary nodule" 1.03 cm, please see recommended guidelines 2. Diffuse chronic lung disease as noted 3. Mediastinal lymphadenopathy 4. Bilateral nephrolithiasis 5. Right renal cyst 6 hepatic cyst. [Solid nodules Single Single solid nodule <6 mm (<100 mm3) low-risk patients: no routine follow-up required high-risk patients: optional CT at 12 months (particularly with suspicious nodule morphology and/or upper lobe location; see "risk assessment" below) Solitary solid nodule 6-8 mm (100-250 mm3) low-risk patients: CT at 6-12 months, then consider CT at 18-24 months high-risk patients: CT at 6-12 months, then CT at 18-24 months Solitary solid nodule >8 mm (>250 mm3) low-risk and high-risk patients: consider CT at 3 months, PET/CT, or tissue sampling] Acute hypoxic respiratory failure: treat with O2, treat the underlying copd AE COPD: iv steriod, duoneb, empiric abx Pneumonia/sepsis; continue antibiotics Possible left lung nodule, pulmonology input appreciated, it is more consistent with infiltrates. Will need repeat imaging in 3 to 6 months. Tobacco abuse/dependence Smoking cessation counseling performed for 10 minutes, nicotine patches when necessary DVT ppx reviewed Disposition: - TO HOME OR SELFCARE Time spent for discharge: 33 mins Core Measure Documentation - Palliative Care Palliative Care/ Comfort Measures: Not Applicable - Core Measures Any of the following diagnoses?: none Exam - Physical Exam Narrative exam: General.: Appears well, no distress, nontoxic HEENT: Moist mucous membranes, extraocular muscles intact, no lymphadenopathy Neck: supple Cardiac: S1-S2 heard Lungs: Decreased air entry, rare wheezing Abdomen: soft , nontender, nondistended, bowel sounds positive Extremities: no edema clubbing or cyanosis Skin: no rash or lesions Neurologic: no gross focal deficits Psych: calm, and cooperative - Constitutional Vitals: Temp Pulse Resp BP Pulse Ox 98.7 F 79 18 150/96 95 08/10/19 12:13 08/10/19 13:05 08/10/19 13:05 08/10/19 12:13 08/10/19 12:13 Plan Follow up with: JERONIMO ESPINOZA MD [Primary Care Provider] - 3-5 Days BOB MYERS MD [Staff Physician] - 7 Days Prescriptions: Nicotine [Habitrol] 14 mg TD DAILY #30 patch levoFLOXacin [Levaquin] 750 mg PO QDAY #4 tablet polyethylene glycoL 3350 [Miralax 3350] 17 gm PO BID PRN #30 powd.pack PRN Reason: Constipation Prednisone [predniSONE 10 mg (6-Day Pack, 21 Tabs)] 10 mg PO .TAPER #1 tab.ds.pk Albuterol INH(or & Nicu Only) [ProAir HFA Inhaler] 2 puff IH QID PRN #8.5 gram PRN Reason: Shortness Of Breath ALBUTEROL NEB's [Proventil 0.083% NEBS] 2.5 mg IH TID PRN #90 neb PRN Reason: Wheezing Tiotropium [place] [Spiriva Respimat] 2 each IH DAILY #1 mist.inhal Budesonide/Formoterol Fumarate [Symbicort 160-4.5 Mcg Inhaler] 2 puff PO BID #1
[2019-08-10 18:06] VITALS: BP 151/96
== END 2019-08-10 21:00 | disposition home health service (06) | DRG 871 ==
LOC: ED 15:50 → 3A 19:48 → OBSVTOIN 08-08 07:30
PROVIDERS: ADMIT Internal Medicine; ATTEND Internal Medicine
PROC: 4A033R1 Measurement of Arterial Saturation, Peripheral, Percutaneous Approach (ICD-10-PCS; principal; 2019-08-08)
DX: A41.9 Sepsis, unspecified organism (principal); J18.9 Pneumonia, unspecified organism; J96.01 Acute respiratory failure with hypoxia; J44.1 Chronic obstructive pulmonary disease with (acute) exacerbation; J44.0 Chronic obstructive pulmonary disease with (acute) lower respiratory infection; F17.213 Nicotine dependence, cigarettes, with withdrawal; R91.1 Solitary pulmonary nodule; I10 Essential (primary) hypertension; Z71.6 Tobacco abuse counseling; Z88.0 Allergy status to penicillin
CPT/HCPCS: 36415; 36600; 71046; 71250; 80048; 82140; 82550; 82803; 83735; 85007; 85025; 85027; 85610; 87040; 87070; 87205; 93005; 93010; 94640; 94644; 94760; 99406; G0378; J1644; J1956; J2920; J3370; J3475; J7030; J7040

== ENCOUNTER 2020-04-08 12:07 | Inpatient (IN) | payer OTHER ==
[2020-04-08] MEDS ORDERED: IPRATROPIUM 0.02% NEBU 2.5 ML IH ONE (12:32)
[2020-04-08] MEDS ORDERED: ALBUTEROL 2.5 MG/3 ML NEBU IH ONE (12:32)
[2020-04-08] MEDS ORDERED: MAGNESIUM SULFATE 2 GM/50 ML BAG IV ONE (12:33)
[2020-04-08] MEDS ORDERED: cloNIDine 0.2 MG TAB PO ONE (12:38)
--- NOTE | 2020-04-08 12:38 | Emergency Department Report ---
HPI - General Chief Complaint: Dyspnea/Respdistress Time Seen by Provider: 04/08/20 12:25 - HPI HPI: Room 21 The patient is a 64-year-old male present with a chief complaint of shortness of breath and cough. Patient states he began noticing a "scratchy throat" and runny nose 3 days ago. The patient states 2 days ago he began to feel weak and aching all over. Patient states he then developed a cough productive of clear sputum which eventually became yellow in color. Patient denies history of fever or known contact with Covid positive patients. Patient states yesterday he developed dyspnea on exertion. ED Past Medical Hx - Past Medical History Hx Hypertension: Yes Hx COPD: Yes - Surgical History Additional Surgical History: Left knee surgery, herniorrhaphy - Family History Family history: no significant - Social History Smoking Status: Current Every Day Smoker (1 pack/day) Substance Use Type: None (Denies illicit drug use) - Medications Home Medications: Home Medications Medication Instructions Recorded Confirmed Last Taken Type lisinopriL [Zestril TAB] 20 mg PO DAILY 08/08/19 08/08/19 Unknown History ALBUTEROL NEB's [Proventil 0.083% 2.5 mg IH TID PRN #90 neb 08/10/19 Unknown Rx NEBS] Albuterol Mdi (or & Nicu Only) 2 puff IH QID PRN #8.5 gram 08/10/19 Unknown Rx [ProAir HFA Inhaler] Budesonide/Formoterol Fumarate 2 puff IH BID #1 hfa.aer.ad 08/10/19 Unknown Rx [Symbicort 160-4.5 Mcg Inhaler] Budesonide/Formoterol Fumarate 2 puff PO BID #1 08/10/19 Unknown Rx [Symbicort 160-4.5 Mcg Inhaler] Nicotine [Habitrol] 14 mg TD DAILY #30 patch 08/10/19 Unknown Rx Prednisone [predniSONE 10 mg 10 mg PO .TAPER #1 tab.ds.pk 08/10/19 Unknown Rx (6-Day Pack, 21 Tabs)] Tiotropium [place] [Spiriva 2 each IH DAILY #1 mist.inhal 08/10/19 Unknown Rx Respimat] levoFLOXacin [Levaquin] 750 mg PO QDAY #4 tablet 08/10/19 Unknown Rx polyethylene glycoL 3350 [Miralax 17 gm PO BID PRN #30 powd.pack 08/10/19 Unknown Rx 3350] Albuterol Mdi (or & Nicu Only) 2 puff IH QID PRN #8.5 gram 04/08/20 Unknown Rx [ProAir HFA Inhaler] Azithromycin [Zithromax Z-NU] 0 mg PO DAILY #6 tab 04/08/20 Unknown Rx Prednisone [predniSONE 10 mg 10 mg PO .TAPER #1 tab.ds.pk 04/08/20 Unknown Rx (6-Day Pack, 21 Tabs)] ED Review of Systems ROS: Stated complaint: DIFFICULTY BREATHING Other details as noted in HPI Constitutional: denies: fever Respiratory: cough, shortness of breath, SOB with exertion Endocrine: no symptoms reported Physical Exam - Physical Exam Vital Signs: Vital Signs 04/08/20 04/08/20 12:16 12:17 Temperature 98 F Pulse Rate 42 L Respiratory 26 H Rate Blood Pressure 197/130 [Right] O2 Sat by Pulse 91 Oximetry Physical Exam: GENERAL: The patient is well-developed well-nourished male lying on stretcher not appearing to be in acute distress. [] HEENT: Normocephalic. Atraumatic. Extraocular motions are intact. Patient has moist mucous membranes. NECK: Supple. Trachea midline CHEST/LUNGS: Faint wheezing diffusely. There is slightly increased work of breathing HEART/CARDIOVASCULAR: Regular. There is no tachycardia. There is no gallop rub or murmur. ABDOMEN: Abdomen is soft, nontender. Patient has normal bowel sounds. There is no abdominal distention. SKIN: There is no rash. There is no edema. There is no diaphoresis. NEURO: The patient is awake, alert, and oriented. The patient is cooperative. The patient has normal speech MUSCULOSKELETAL:There is no evidence of acute injury. ED Course Vital Signs 04/08/20 04/08/20 12:16 12:17 Temperature 98 F Pulse Rate 42 L Respiratory 26 H Rate Blood Pressure 197/130 [Right] O2 Sat by Pulse 91 Oximetry - Reevaluation(s) Reevaluation #1: 04/08/20 15:23 Discussed with the patient his room air SPO2 of 89-90%. I explained that this left untreated could lead to increased morbidity and/or . Patient verbalized understanding of increased morbidity and/or mortality but states he does not wish to stay in the hospital. Strong warnings given to return should he change his mind. Patient leaving the hospital AGAINST MEDICAL ADVICE ED Medical Decision Making - Lab Data Result diagrams: 04/08/20 12:45 04/08/20 12:45 Laboratory Tests 04/08/20 04/08/20 04/08/20 12:45 12:45 12:45 WBC 6.2 RBC 4.86 Hgb 16.5 H Hct 47.3 H MCV 97 H MCH 34 H MCHC 35 H RDW 14.1 Plt Count 183 Lymph % (Auto) 22.1 [place] % (Auto) 8.4 H Eos % (Auto) 4.2 Baso % (Auto) 0.6 Lymph # (Auto) 1.4 [place] # (Auto) 0.5 Eos # (Auto) 0.3 Baso # (Auto) 0.0 Seg Neutrophils % 64.7 Seg Neutrophils # 4.0 Sodium 139 Potassium 4.6 Chloride 98.9 Carbon Dioxide 26 Anion Gap 19 BUN 13 Creatinine 0.9 Estimated GFR > 60 BUN/Creatinine Ratio 14 Glucose 94 Lactic Acid 1.40 Calcium 10.2 Total Creatine Kinase 147 CK-MB (CK-2) 3.7 CK-MB (CK-2) Rel Index 2.5 Troponin T < 0.010 NT-Pro-B Natriuret Pep 711.2 - Radiology Data Radiology results: report reviewed (Chest x-ray), image reviewed (Chest x-ray) interpreted by me: Chest x-ray-no focal infiltrate, no pneumothorax. No foreign body seen. [facility] [address] [place] [address] XRay Report Signed Patient: ANANDA BLUE MR#: [id number] : 1955 Acct:[id number] Age/Sex: 64 / M ADM Date: 04/08/20 Loc: ED Attending Dr: Ordering Physician: ANAMARIA BOSWELL MD Date of Service: 04/08/20 Procedure(s): XR chest 1V ap Accession Number(s): [id number] cc: ANAMARIA BOSWELL MD Fluoro Time In Minutes: CHEST 1 VIEW INDICATION / CLINICAL INFORMATION: Shortness of breath. COMPARISON: 08/07/2019 FINDINGS: SUPPORT DEVICES: None. HEART / MEDIASTINUM: No significant abnormality. LUNGS / PLEURA: No significant pulmonary or pleural ab normality. No pneumothorax. ADDITIONAL FINDINGS: No significant additional findings. IMPRESSION: No acute disease or interval change from 08/07/2019 Signer Name: Ez Bradley MD FACR Signed: 04/08/2020 2:30 PM Workstation Name: [id number] Transcribed By: MS Dictated By: Ez Bradley MD El ectronically Authenticated By: Ez Bradley MD Signed Date/Time: 04/08/201429 DD/ 29 TD/TT: - Medical Decision Making The patient's SPO2 was explained to him while he is receiving supplemental oxygen. Patient alert and oriented x4. Patient leaving AGAINST MEDICAL ADVICE - Differential Diagnosis COPD exacerbation, pneumonia, bronchitis, COVID-19 Critical care attestation.: If time is entered above; I have spent that time in minutes in the direct care of this critically ill patient, excluding procedure time. ED Disposition Clinical Impression: COPD with acute exacerbation, Hypoxia Disposition: - LEFT AGAINST MED ADVICE Is pt being admited?: No Does the pt Need Aspirin: No Condition: Undetermined Instructions: Chronic Obstructive Pulmonary Disease (ED) Additional Instructions: Return to the emergency department should you develop worsening symptoms, inability to tolerate food or liquids, high fever or any other concerns Prescriptions: Prednisone [predniSONE 10 mg (6-Day Pack, 21 Tabs)] 10 mg PO .TAPER #1 tab.ds.pk Albuterol Mdi (or & Nicu Only) [ProAir HFA Inhaler] 2 puff IH QID PRN #8.5 gram PRN Reason: Shortness Of Breath Azithromycin [Zithromax Z-NU] 0 mg PO DAILY #6 tab Referrals: [facility] [Provider Group] - 3-5 Days Time of Disposition: 15:26 (Patient leaving AMA)
[2020-04-08 13:20] LABS: Basophils % (Auto) 0.6 % (0.0-1.8); Eosinophils # (Auto) 0.3 K/mm3 (0.0-0.4); Eosinophils % (Auto) 4.2 % (0.0-4.3); Hematocrit 47.3 % (35.5-45.6); Hemoglobin 16.5 gm/dl (11.8-15.2); Lymphocytes # (Auto) 1.4 K/mm3 (1.2-5.4); Lymphocytes % (Auto) 22.1 % (13.4-35.0); Mean Corpuscular HGB Conc 35 % (32-34); Mean Corpuscular Volume 97 fl (84-94); Monocytes # (Auto) 0.5 K/mm3 (0.0-0.8); Monocytes % (Auto) 8.4 % (0.0-7.3); Platelet Count 183 K/mm3 (140-440); Red Blood Count 4.86 M/mm3 (3.65-5.03); Red Cell Distribution Width 14.1 % (13.2-15.2)
[2020-04-08 14:24] LABS: Creatine Kinase MB 3.7 ng/mL (0.0-4.0)
[2020-04-08 14:28] LABS: BUN/Creatinine Ratio 14; Blood Urea Nitrogen 13 mg/dL (9-20); Calcium 10.2 mg/dL (8.4-10.2); Hemolysis Index 13
--- NOTE | 2020-04-08 14:35 | XRay Report ---
CHEST 1 VIEW INDICATION / CLINICAL INFORMATION: Shortness of breath. COMPARISON: 08/07/2019 FINDINGS: SUPPORT DEVICES: None. HEART / MEDIASTINUM: No significant abnormality. LUNGS / PLEURA: No significant pulmonary or pleural abnormality. No pneumothorax. ADDITIONAL FINDINGS: No significant additional findings. IMPRESSION: No acute disease or interval change from 08/07/2019 Signer Name: Ez Bradley MD FACR Signed: 04/08/2020 2:30 PM Workstation Name: [id number]
--- NOTE | 2020-04-08 16:21 | History and Physical Report ---
History of Present Illness Chief complaint: My breathing got worse History of present illness: 64-year-old male with COPD, Nicotine Dependence, HTN presents to ED for evaluation. Patient states that he has an experience difficulty breathing over the past 3 days with persistently worsening symptoms over the same timeframe. Patient acknowledges decreased exercise tolerance, dyspnea on exertion, dyspnea at rest. Patient states that he has not experienced any improvement in the aforementioned symptoms with increased nebulizer therapy. Patient acknowledges increased productive cough with initially clear sputum which has now changed to yellowish sputum. Patient transported to [facility] via private vehicle for further care and evaluation of the aforementioned symptoms. Patient seen and evaluated in the emergency department. Lab and imaging studies reviewed. Patient found to have a pulse oximetry of 87% on room air which is consistent with acute hypoxemic respiratory failure suspected secondary to COPD exacerbation. Patient admitted to medical floor and treated with supplemental oxygen, nebulizer therapy, as well as IV steroid therapy. Patient is leaning forward in bed, using accessory muscles to breathe, and is unable to speak in complete sentences. Patient has coughing episodes with attempts to use speak. Patient is unable to ambulate 10 feet without stopping due to shortness of breath. Patient admitted to medical floor due to increased risk of pulmonary decompensation. Patient denies fever, chills, chest pain, skin rash, recent ill contacts, or known exposure to COVID-19. All medication listed at time of admission has been reconciled. Advanced care planning conducted in the emergency department. Prior admission on 08/08/2019 reviewed. Past History Past Medical History: COPD, hypertension, other (See HPI) Past Surgical History: hernia repair, total knee replacement Social history: single, smoking. denies: alcohol abuse, prescription drug abuse Family history: hypertension Medications and Allergies Allergies Allergy/AdvReac Type Severity Reaction Status Date / Time Penicillins Allergy Unknown Verified 04/08/20 12:12 Home Medications Medication Instructions Recorded Confirmed Last Taken Type lisinopriL [Zestril TAB] 40 mg PO DAILY 08/08/19 04/08/20 Unknown History Albuterol Mdi (or & Nicu Only) 2 puff IH QID PRN #8.5 gram 08/10/19 04/08/20 Unknown Rx [ProAir HFA Inhaler] Budesonide/Formoterol Fumarate 2 puff IH BID #1 hfa.aer.[email or web address] 08/10/19 04/08/20 Unknown Rx [Symbicort 160-4.5 Mcg Inhaler] Tiotropium [place] [Spiriva 2 each IH DAILY #1 mist.inhal 08/10/19 04/08/20 Unknown Rx Respimat] Aspirin EC [Halfprin EC] 81 mg PO DAILY 04/08/20 04/08/20 Unknown History Cyanocobalamin/Cobamamide [Vitamin 1 cap PO DAILY 04/08/20 04/08/20 Unknown His tory B-12 5,000 Mcg Tab Sl] Ipratropium/Albuterol Sulfate 1 ampul IH Q6HR 04/08/20 04/08/20 Unknown History [DUONEB *Not for PRN Use*] Review of Systems Constitutional: no weight loss, no weight gain, no fever, no chills Ears, nose, mouth and throat: no ear pain, no ear discharge, no tinnitis, no decreased hearing, no nasal congestion, no nasal discharge Cardiovascular: no chest pain, no orthopnea, no rapid/irregular heart beat, no edema Respiratory: cough, cough with sputum, excessive sputum, shortness of breath, no pleurisy Gastrointestinal: no nausea, no vomiting, no diarrhea, no constipation Genitourinary Male: no hematuria, no flank pain, no discharge, no urinary frequency, no urinary hesitancy Rectal: no pain, no incontinence, no bleeding Musculoskeletal: no neck stiffness, no neck pain, no arm numbness/tingling Integumentary: no rash, no pruritis, no redness, no sores, no wounds Neurological: no head injury, no paralysis, no parathesias, no numbness, no tingling, no seizures, no tremors Psychiatric: no anxiety, no change in sleep habits, no sleep disturbances, no change in appetite, no change in libido, no hallucinations Endocrine: no cold intolerance, no heat intolerance, no polydipsia, no polyuria, no nocturia, no excessive sweating Hematologic/Lymphatic: no easy bruising, no easy bleeding, no lymphadenopathy, no lymphedema Allergic/Immunologic: no urticaria, no allergic rhinitis, no wheezing, no persistent infections, no anaphylaxis Exam - Constitutional Vitals: Temp Pulse Resp BP Pulse Ox 98.0 F 95 H 18 118/90 99 04/08/20 12:17 04/08/20 12:44 04/08/20 12:44 04/08/20 14:48 04/08/20 14:01 General appearance: Present: mild distress - EENT Eyes: Present: PERRL ENT: hearing intact, clear oral mucosa - Neck Neck: Present: supple, normal ROM - Respiratory Respiratory effort: labored, pursed lips, accessory muscle use, stridor Respiratory: bilateral: diminished, wheezing - Cardiovascular Heart Sounds: Present: S1 & S2. Absent: rub, click - Extremities Extremities: pulses symmetrical, No edema Peripheral Pulses: within normal limits - Abdominal General gastrointestinal: Present: soft, non-tender, non-distended, normal bowel sounds Male genitourinary: Present: normal - Integumentary Integumentary: Present: clear, warm, dry - Musculoskeletal Musculoskeletal: gait normal, strength equal bilaterally - Psychiatric Psychiatric: appropriate mood/affect, intact judgment & insight, agitated - Neurologic Neurologic: CNII-XII intact, moves all extremities HEART Score - HEART Score Troponin: Troponin T < 0.010 ng/mL (0.00-0.029) 04/08/20 12:45 Results - Labs CBC & Chem 7: 04/08/20 12:45 04/08/20 12:45 Labs: Abnormal lab results 04/08/20 Range/Units 12:45 Hgb 16.5 H (11.8-15.2) gm/dl Hct 47.3 H (35.5-45.6) % MCV 97 H (84-94) fl MCH 34 H (28-32) pg MCHC 35 H (32-34) % [place] % (Auto) 8.4 H (0.0-7.3) % Assessment and Plan - Patient Problems (1) Acute hypoxemic respiratory failure Current Visit: Yes Status: Acute Plan to address problem: Supplemental oxygen, nebulizer therapy, pulse oximetry, chest x-ray, supportive care. (2) COPD with acute exacerbation Current Visit: Yes Status: Acute Plan to address problem: Supplemental oxygen, chest x-ray, nebulizer therapy, IV steroid therapy, pulse oximetry, pulmonary toilet, supportive care. (3) Accelerated hypertension Current Visit: Yes Status: Acute Plan to address problem: Monitor blood pressure every shift, continue medical management. (4) DVT prophylaxis Current Visit: No Status: Acute Plan to address problem: SCD to bilateral lower extremities while in bed, patient is ambulatory (5) Advance care planning Current Visit: Yes Status: Acute Plan to address problem: Disease education conducted, patient is full code, prognosis discussed, patient knowledges understanding and agreement with care plan, +30 minutes
[2020-04-08] MEDS ORDERED: methylPREDNISolone Sod Succinate 125 MG/2 ML INJ IV ONE (16:28)
[2020-04-08] MEDS ORDERED: ACETAMINOPHEN 325 MG TAB PO PRN (20:30)
[2020-04-08] MEDS ORDERED: ONDANSETRON 4 MG/2 ML INJ IV PRN (20:30)
[2020-04-08] MEDS ORDERED: ALBUTEROL 2.5 MG/3 ML NEBU IH PRN (20:30)
[2020-04-08] MEDS ORDERED: methylPREDNISolone Sod Succinate 40 MG/1 ML INJ ONE (21:47)
[2020-04-08] MEDS ORDERED: NON-FORMULARY EACH (Budesonide/Formoterol Fumarate [Symbicort 160-4.5 Mcg Inhaler] 2 PUFF) IH SCH (22:00)
[2020-04-08] MEDS: methylPREDNISolone Sod Succinate 40 MG/1 ML INJ IV SCH (22:09)
[2020-04-09] MEDS ORDERED: ALBUTEROL 2.5 MG/3 ML NEBU IH PRN (01:00)
[2020-04-09] MEDS: methylPREDNISolone Sod Succinate 40 MG/1 ML INJ IV SCH ×3 (06:57→22:46)
[2020-04-09] MEDS: BUDESONIDE 0.5 MG/2 ML NEBU IH SCH ×2 (07:23→19:59)
[2020-04-09] MEDS: ARFORMOTEROL 15 MCG/2 ML NEBU IH SCH ×2 (07:23→19:59)
[2020-04-09 08:49] LABS: BUN/Creatinine Ratio 22; Blood Urea Nitrogen 20 mg/dL (9-20); Calcium 9.8 mg/dL (8.4-10.2); Hemolysis Index 7
[2020-04-09] MEDS ORDERED: CYANOCOBALAMIN PO SCH (10:00)
[2020-04-09] MEDS ORDERED: TIOTROPIUM BROMIDE IH SCH (10:00)
[2020-04-09] MEDS ORDERED: COBAMAMIDE PO SCH (10:00)
[2020-04-09] MEDS: ASPIRIN EC 81 MG TAB PO SCH (10:07)
[2020-04-09] MEDS: LISINOPRIL 40 MG TAB PO SCH (10:13)
[2020-04-09] MEDS: TIOTROPIUM 18 MCG CAP INHALATION IH SCH (16:55)
[2020-04-09] MEDS ORDERED: SODIUM POLYSTYRENE 15 GM/60 ML ORAL LIQD PO ONE (17:37)
--- NOTE | 2020-04-09 17:41 | Progress Note ---
Assessment and Plan - Patient Problems (1) COPD with acute exacerbation Current Visit: Yes Status: Acute Plan to address problem: Telemetry oxygen Patient has been having to go deep breathing over the past couple days with a productive cough prior to presentation 04/08 CXR shows no acute abnormalities and no acute changes from previous CXR Nebulizer therapy IV steroid therapy Continuous pulse ox Pulmonary hygiene 04/08 COVID-19 PCR pending 07/2019 CXR shows: The lungs are hyperinflated suggesting COPD. Additionally there are bilateral lower lobe pulmonary opacities. (2) Acute hypoxemic respiratory failure Current Visit: Yes Status: Acute Plan to address problem: SPO2 on room air in the emergency department was Telemetry oxygenation as needed Nebulizer therapy Pulmonary hygiene (3) HTN (hypertension) Current Visit: No Status: Acute Qualifiers: Hypertension type: essential hypertension Qualified Code(s): I10 - Essential (primary) hypertension Plan to address problem: ACEi, CCB Blood pressure monitor per protocol (4) Nicotine dependence Current Visit: No Status: Acute Qualifiers: Nicotine product type: cigarettes Substance use status: in withdrawal Qualified Code(s): F17.213 - Nicotine dependence, cigarettes, with withdrawal Plan to address problem: Smoking cessation counseling Consider TD nicotine while inhouse (5) DVT prophylaxis Current Visit: Yes Status: Acute Plan to address problem: SCD to bilateral lower extremities while in bed History Interval history: 64-year-old male with COPD, Nicotine Dependence, HTN presented to the emergency department on 04/08 with difficulty breathing over the past 3 days with persistently worsening symptoms over the same timeframe. He complains of decreased exercise intolerance, dyspnea on exertion, dyspnea at rest with no relief from increased numbers of therapy, increased productive cough yellowish sputum. In the emergency department his SPO2 on room air was 87% consistent with acute hypoxemic respiratory failure suspected secondary to COPD exacerbation. At the time of my examination patient states that he feels better with supplemental oxygen in place. RN has ordered a COVID-19 PCR on the patient. On labs this morning he is hyperkalemic at 5.2, Kayexalate ordered and will follow up potassium level tomorrow. Hospitalist Physical - Constitutional Vitals: Temp Pulse Resp BP Pulse Ox 97.3 F L 74 18 146/89 96 04/09/20 11:34 04/09/20 11:34 04/09/20 11:34 04/09/20 11:34 04/09/20 11:34 General appearance: Present: no acute distress - EENT Eyes: Present: PERRL, EOM intact ENT: hearing intact, clear oral mucosa - Neck Neck: Present: supple, normal ROM - Respiratory Respiratory effort: normal Respiratory: bilateral: diminished - Cardiovascular Rhythm: regular Heart Sounds: Present: S1 & S2. Absent: systolic murmur, diastolic murmur - Extremities Extremities: no ischemia, pulses intact, pulses symmetrical, No edema, normal temperature, normal color, Full ROM - Abdominal General gastrointestinal: soft, non-tender, non-distended, normal bowel sounds - Integumentary Integumentary: Present: clear, warm, dry - Psychiatric Psychiatric: cooperative - Neurologic Neurologic: CNII-XII intact, no focal deficits, moves all extremities HEART Score - HEART Score Troponin: Troponin T < 0.010 ng/mL (0.00-0.029) 04/08/20 12:45 Results - Labs CBC & Chem 7: 04/08/20 12:45 04/09/20 06:58 Labs: Laboratory Last Values WBC 6.2 K/mm3 (4.5-11.0) 04/08/20 12:45 RBC 4.86 M/mm3 (3.65-5.03) 04/08/20 12:45 Hgb 16.5 gm/dl (11.8-15.2) H 04/08/20 12:45 Hct 47.3 % (35.5-45.6) H 04/08/20 12:45 MCV 97 fl (84-94) H 04/08/20 12:45 MCH 34 pg (28-32) H 04/08/20 12:45 MCHC 35 % (32-34) H 04/08/20 12:45 RDW 14.1 % (13.2-15.2) 04/08/20 12:45 Plt Count 183 K/mm3 (140-440) 04/08/20 12:45 Lymph % (Auto) 22.1 % (13.4-35.0) 04/08/20 12:45 [place] % (Auto) 8.4 % (0.0-7.3) H 04/08/20 12:45 Eos % (Auto) 4.2 % (0.0-4.3) 04/08/20 12:45 Baso % (Auto) 0.6 % (0.0-1.8) 04/08/20 12:45 Lymph # (Auto) 1.4 K/mm3 (1.2-5.4) 04/08/20 12:45 [place] # (Auto) 0.5 K/mm3 (0.0-0.8) 04/08/20 12:45 Eos # (Auto) 0.3 K/mm3 (0.0-0.4) 04/08/20 12:45 Baso # (Auto) 0.0 K/mm3 (0.0-0.1) 04/08/20 12:45 Seg Neutrophils % 64.7 % (40.0-70.0) 04/08/20 12:45 Seg Neutrophils # 4.0 K/mm3 (1.8-7.7) 04/08/20 12:45 Sodium 140 mmol/L (137-145) 04/09/20 06:58 Potassium 5.2 mmol/L (3.6-5.0) H 04/09/20 06:58 Chloride 101.4 mmol/L (98-107) 04/09/20 06:58 Carbon Dioxide 25 mmol/L (22-30) 04/09/20 06:58 Anion Gap 19 mmol/L 04/09/20 06:58 BUN 20 mg/dL (9-20) 04/09/20 06:58 Creatinine 0.9 mg/dL (0.8-1.3) 04/09/20 06:58 Estimated GFR > 60 ml/min 04/09/20 06:58 BUN/Creatinine Ratio 22 % 04/09/20 06:58 Glucose 115 mg/dL (75-100) H 04/09/20 06:58 Lactic Acid 1.40 mmol/L (0.7-2.0) 04/08/20 12:45 Calcium 9.8 mg/dL (8.4-10.2) 04/09/20 06:58 Total Creatine Kinase 147 units/L (55-170) 04/08/20 12:45 CK-MB (CK-2) 3.7 ng/mL (0.0-4.0) 04/08/20 12:45 CK-MB (CK-2) Rel Index 2.5 (0-4) 04/08/20 12:45 Troponin T < 0.010 ng/mL (0.00-0.029) 04/08/20 12:45 NT-Pro-B Natriuret Pep 711.2 pg/mL (0-900) 04/08/20 12:45 Nasal Screen MRSA (PCR) Negative (Negative) 04/09/20 00:01 Microbiology: Microbiology 04/08/20 12:45 Peripheral/Venous Blood Culture - Preliminary NO GROWTH AFTER 24 HOURS 04/08/20 12:45 Peripheral/Venous Blood Culture - Preliminary NO GROWTH AFTER 24 HOURS Jordan/IV: Voiding Method Toilet IV Catheter Type [Left INT / Saline Lock Antecubital] Active Medications - Current Medications Current Medications: Generic Name Dose Route Start Last Admin Trade Name Freq PRN Reason Stop Dose Admin Acetaminophen 650 mg 04/08/20 20:30 Tylenol PO Q4H PRN Pain MILD(1-3)/Fever >100.5/GONCALVES Albuterol 2.5 mg 04/09/20 01:00 Proventil IH Q4HRT PRN Shortness Of Breath Amlodipine Besylate 5 mg 04/09/20 18:00 Amlodipine PO QDAY FELIPE Arformoterol Tartrate 15 mcg 04/09/20 08:00 04/09/20 07:23 Brovana Nebu IH 15 mcg Q12HRT FELIPE Administration Aspirin 81 mg 04/09/20 10:00 04/09/20 10:07 Halfprin Ec PO 81 mg DAILY FELIPE Administration Budesonide 0.5 mg 04/09/20 08:00 04/09/20 07:23 Pulmicort IH 0.5 mg Q12HRT FELIPE Administration Cyanocobalamin 1,000 mcg 04/10/20 10:00 Vitamin B-12 PO QDAY FELIPE Lisinopril 40 mg 04/09/20 10:00 04/09/20 10:13 Zestril PO 40 mg QDAY FELIPE Administration Methylprednisolone Sodium Succinate 40 mg 04/08/20 22:00 04/09/20 15:20 Solu-Medrol IV 40 mg Q8HR FELIPE Administration Ondansetron HCl 4 mg 04/08/20 20:30 Zofran IV Q8H PRN Nausea And Vomiting Sodium Chloride 10 ml 04/08/20 22:00 04/09/20 10:08 Sodium Chloride Flush Syringe 10 Ml IV 10 ml BID FELIPE Administration Sodium Chloride 10 ml 04/08/20 20:30 Sodium Chloride Flush Syringe 10 Ml IV PRN PRN LINE FLUSH Sodium Polystyrene Sulfonate 15 gm 04/09/20 17:37 Kionex PO 04/09/20 17:38 ONCE ONE Tiotropium [place] 2 puff 04/09/20 09:00 04/09/20 16:55 Spiriva IH Not Given Q24HRT FELIPE
[2020-04-09] MEDS: amLODIPine 5 MG TAB PO SCH (18:03)
[2020-04-09 19:14] LABS: BUN/Creatinine Ratio 25; Blood Urea Nitrogen 25 mg/dL (9-20); Calcium 10.2 mg/dL (8.4-10.2); Hemolysis Index 6
[2020-04-10] MEDS: methylPREDNISolone Sod Succinate 40 MG/1 ML INJ IV SCH ×3 (05:52→23:58)
[2020-04-10] MEDS: BUDESONIDE 0.5 MG/2 ML NEBU IH SCH ×3 (09:31→20:59)
[2020-04-10] MEDS: ARFORMOTEROL 15 MCG/2 ML NEBU IH SCH ×2 (09:31→09:32)
[2020-04-10] MEDS: TIOTROPIUM 18 MCG CAP INHALATION IH SCH (09:33)
[2020-04-10] MEDS: ASPIRIN EC 81 MG TAB PO SCH (10:57)
[2020-04-10] MEDS: CYANOCOBALAMIN (VIT B-12) 1000 MCG TAB PO SCH (10:57)
[2020-04-10] MEDS: amLODIPine 5 MG TAB PO SCH (10:57)
[2020-04-10] MEDS: LISINOPRIL 40 MG TAB PO SCH (10:57)
[2020-04-10] MEDS ORDERED: NICOTINE 14 MG/24 HR PATCH TD SCH (11:00)
[2020-04-10] MEDS ORDERED: FUROSEMIDE 40 MG/4 ML INJ IV SCH (11:00)
--- NOTE | 2020-04-10 17:28 | Progress Note ---
Assessment and Plan - Patient Problems (1) COPD with acute exacerbation Current Visit: Yes Status: Acute Plan to address problem: Telemetry oxygen Patient has been having to go deep breathing over the past couple days with a productive cough prior to presentation 04/08 CXR shows no acute abnormalities and no acute changes from previous CXR Home pulmonary regimen restarted IV steroid therapy Continuous pulse ox Pulmonary hygiene 04/08 COVID-19 PCR negative 07/2019 CXR shows: The lungs are hyperinflated suggesting COPD. Additionally there are bilateral lower lobe pulmonary opacities. 04/10 Lasix started Consider pulmonary consult if needed (2) Acute hypoxemic respiratory failure Current Visit: Yes Status: Acute Plan to address problem: SPO2 on room air in the emergency department was 87% Telemetry oxygenation as needed Home pulmonary regimen resumed Pulmonary hygiene (3) HTN (hypertension) Current Visit: No Status: Chronic Qualifiers: Hypertension type: essential hypertension Qualified Code(s): I10 - E ssential (primary) hypertension Plan to address problem: ACEi, CCB Blood pressure monitor per protocol 04/10 Lasix started (4) Nicotine dependence Current Visit: No Status: Chronic Qualifiers: Nicotine product type: cigarettes Substance use status: in withdrawal Qualified Code(s): F17.213 - Nicotine dependence, cigarettes, with withdrawal Plan to address problem: Smoking cessation counseling Consider TD nicotine while inhouse (5) DVT prophylaxis Current Visit: Yes Status: Acute Plan to address problem: SCD to bilateral lower extremities while in bed History Interval history: 64-year-old male with COPD, Nicotine Dependence, HTN presented to the emergency department on 04/08 with difficulty breathing over the past 3 days with persistently worsening symptoms over the same timeframe. He complains of decreased exercise intolerance, dyspnea on exertion, dyspnea at rest with no relief from increased numbers of therapy, increased productive cough yellowish sputum. In the emergency department his SPO2 on room air was 87% consistent with acute hypoxemic respiratory failure suspected secondary to COPD exacerbation. At the time of my examination patient states that he feels worse today compared to yesterday. He is currently on 5 L nasal cannula. On labs this morning his hyperkalemia has resolved. He was started on IV Lasix daily. 04/09: COVID-19 PCR negative, hyperkalemic at 5.2 Kayexalate ordered. Hospitalist Physical - Constitutional Vitals: Temp Pulse Resp BP Pulse Ox 97.8 F 63 18 140/84 98 04/10/20 11:51 04/10/20 11:51 04/10/20 11:51 04/10/20 11:51 04/10/20 11:51 General appearance: Present: no acute distress - EENT Eyes: Present: PERRL, EOM intact ENT: hearing intact, clear oral mucosa - Neck Neck: Present: supple - Respiratory Respiratory effort: normal Respiratory: bilateral: wheezing - Cardiovascular Rhythm: regular Heart Sounds: Present: S1 & S2. Absent: systolic murmur, diastolic murmur - Extremities Extremities: no ischemia, pulses intact, pulses symmetrical, No edema, normal temperature, normal color, Full ROM Peripheral Pulses: within normal limits - Abdominal General gastrointestinal: soft, non-tender, non-distended, normal bowel sounds - Integumentary Integumentary: Present: clear, warm, dry - Psychiatric Psychiatric: cooperative - Neurologic Neurologic: CNII-XII intact, no focal deficits, moves all extremities - Allied Health Allied health notes reviewed: nursing HEART Score - HEART Score Troponin: Troponin T < 0.010 ng/mL (0.00-0.029) 04/08/20 12:45 Results - Labs CBC & Chem 7: 04/08/20 12:45 04/09/20 18:48 Labs: Laboratory Last Values WBC 6.2 K/mm3 (4.5-11.0) 04/08/20 12:45 RBC 4.86 M/mm3 (3.65-5.03) 04/08/20 12:45 Hgb 16.5 gm/dl (11.8-15.2) H 04/08/20 12:45 Hct 47.3 % (35.5-45.6) H 04/08/20 12:45 MCV 97 fl (84-94) H 04/08/20 12:45 MCH 34 pg (28-32) H 04/08/20 12:45 MCHC 35 % (32-34) H 04/08/20 12:45 RDW 14.1 % (13.2-15.2) 04/08/20 12:45 Plt Count 183 K/mm3 (140-440) 04/08/20 12:45 Lymph % (Auto) 22.1 % (13.4-35.0) 04/08/20 12:45 [place] % (Auto) 8.4 % (0.0-7.3) H 04/08/20 12:45 Eos % (Auto) 4.2 % (0.0-4.3) 04/08/20 12:45 Baso % (Auto) 0.6 % (0.0-1.8) 04/08/20 12:45 Lymph # (Auto) 1.4 K/mm3 (1.2-5.4) 04/08/20 12:45 [place] # (Auto) 0.5 K/mm3 (0.0-0.8) 04/08/20 12:45 Eos # (Auto) 0.3 K/mm3 (0.0-0.4) 04/08/20 12:45 Baso # (Auto) 0.0 K/mm3 (0.0-0.1) 04/08/20 12:45 Seg Neutrophils % 64.7 % (40.0-70.0) 04/08/20 12:45 Seg Neutrophils # 4.0 K/mm3 (1.8-7.7) 04/08/20 12:45 Sodium 139 mmol/L (137-145) 04/09/20 18:48 Potassium 4.8 mmol/L (3.6-5.0) 04/09/20 18:48 Chloride 98.1 mmol/L (98-107) 04/09/20 18:48 Carbon Dioxide 28 mmol/L (22-30) 04/09/20 18:48 Anion Gap 18 mmol/L 04/09/20 18:48 BUN 25 mg/dL (9-20) H 04/09/20 18:48 Creatinine 1.0 mg/dL (0.8-1.3) 04/09/20 18:48 Estimated GFR > 60 ml/min 04/09/20 18:48 BUN/Creatinine Ratio 25 % 04/09/20 18:48 Glucose 139 mg/dL (75-100) H 04/09/20 18:48 Lactic Acid 1.40 mmol/L (0.7-2.0) 04/08/20 12:45 Calcium 10.2 mg/dL (8.4-10.2) 04/09/20 18:48 Total Creatine Kinase 147 units/L (55-170) 04/08/20 12:45 CK-MB (CK-2) 3.7 ng/mL (0.0-4.0) 04/08/20 12:45 CK-MB (CK-2) Rel Index 2.5 (0-4) 04/08/20 12:45 Troponin T < 0.010 ng/mL (0.00-0.029) 04/08/20 12:45 NT-Pro-B Natriuret Pep 711.2 pg/mL (0-900) 04/08/20 12:45 Nasal Screen MRSA (PCR) Negative (Negative) 04/09/20 00:01 Coronavirus (PCR) Negative (Negative) 04/09/20 10:51 Microbiology: Microbiology 04/08/20 12:45 Peripheral/Venous Blood Culture - Preliminary NO GROWTH AFTER 48 HOURS 04/08/20 12:45 Peripheral/Venous Blood Culture - Preliminary NO GROWTH AFTER 48 HOURS Jordan/IV: Voiding Method Toilet IV Catheter Type [Left INT / Saline Lock Antecubital] Active Medications - Current Medications Current Medications: Generic Name Dose Route Start Last Admin Trade Name Freq PRN Reason Stop Dose Admin Acetaminophen 650 mg 04/08/20 20:30 Tylenol PO Q4H PRN Pain MILD(1-3)/Fever >100.5/GONCALVES Albuterol 2.5 mg 04/09/20 01:00 Proventil IH Q4HRT PRN Shortness Of Breath Amlodipine Besylate 5 mg 04/09/20 18:00 04/10/20 10:57 Amlodipine PO 5 mg QDAY FELIPE Administration Arformoterol Tartrate 15 mcg 04/09/20 08:00 04/10/20 09:32 Brovana Nebu IH Not Given Q12HRT FELIPE Aspirin 81 mg 04/09/20 10:00 04/10/20 10:57 Halfprin Ec PO 81 mg DAILY FELIPE Administration Budesonide 0.5 mg 04/09/20 08:00 04/10/20 09:32 Pulmicort IH Not Given Q12HRT FELIPE Cyanocobalamin 1,000 mcg 04/10/20 10:00 04/10/20 10:57 Vitamin B-12 PO 1,000 mcg QDAY FELIPE Administration Furosemide 40 mg 04/11/20 10:00 Lasix IV QDAY FELIPE Lisinopril 40 mg 04/09/20 10:00 04/10/20 10:57 Zestril PO 40 mg QDAY FELIPE Administration Methylprednisolone Sodium Succinate 40 mg 04/08/20 22:00 04/10/20 16:38 Solu-Medrol IV 40 mg Q8HR FELIPE Administration Ondansetron HCl 4 mg 04/08/20 20:30 Zofran IV Q8H PRN Nausea And Vomiting Sodium Chloride 10 ml 04/08/20 22:00 04/10/20 10:58 Sodium Chloride Flush Syringe 10 Ml IV 10 ml BID FELIPE Administration Sodium Chloride 10 ml 04/08/20 20:30 Sodium Chloride Flush Syringe 10 Ml IV PRN PRN LINE FLUSH Tiotropium [place] 2 puff 04/09/20 09:00 04/10/20 09:33 Spiriva IH Not Given Q24HRT FELIPE
[2020-04-10] MEDS: IPRATROPIUM/ALBUTEROL SULFATE 3 ML AMPUL.NEB IH SCH (21:00)
[2020-04-11] MEDS: IPRATROPIUM/ALBUTEROL SULFATE 3 ML AMPUL.NEB IH SCH ×4 (02:18→20:20)
[2020-04-11] MEDS: methylPREDNISolone Sod Succinate 40 MG/1 ML INJ IV SCH ×3 (06:01→21:24)
[2020-04-11] MEDS: BUDESONIDE 0.5 MG/2 ML NEBU IH SCH ×2 (09:13→20:20)
[2020-04-11] MEDS: TIOTROPIUM 18 MCG CAP INHALATION IH SCH (09:21)
[2020-04-11] MEDS: CYANOCOBALAMIN (VIT B-12) 1000 MCG TAB PO SCH (10:20)
[2020-04-11] MEDS: amLODIPine 5 MG TAB PO SCH (10:20)
[2020-04-11] MEDS: LISINOPRIL 40 MG TAB PO SCH (10:20)
[2020-04-11] MEDS: ASPIRIN EC 81 MG TAB PO SCH (10:20)
[2020-04-11] MEDS: FUROSEMIDE 40 MG/4 ML INJ IV SCH (10:20)
--- NOTE | 2020-04-11 10:43 | Cat Scan Report ---
CT chest with contrast INDICATION : f/u CT/COPD exacerbation. TECHNIQUE: 100 mL of intravenous contrast administered. All CT scans at this location are performed using CT dose reduction for ALARA by means of automated exposure control. COMPARISON: CT chest from 08/08/2019 FINDINGS: There is again severe emphysema with interval resolution of the previously seen nodular de nsity in the left lower lobe which was most likely infectious/inflammatory in etiology. The lungs are otherwise clear with no consolidation, nodule, mass, or effusion. A few calcified mediastinal lymph nodes are present suggesting chronic granulomatous change. There is no pathologic mediastinal adenopathy. The heart and great vessels appear normal except for moderate atherosclerotic disease within the coronary arteries. Limited imaging of the upper abdomen shows simple cyst formation in the medial hepatic segment. There are also simple cysts in the kidneys and bilateral nonobstructive nephrolithiasis. Degenerative prescott ges are present throughout the spine with no acute osseous abnormality identified. IMPRESSION: Interval resolution of the left lower lobe nodule in this patient with severe emphysema. The lungs are otherwise clear with no acute abnormality. Signer Name: Jaime Marroquin MD Signed: 04/11/2020 10:38 AM Workstation Name: [id number]
--- NOTE | 2020-04-11 13:40 | Consultation ---
History of Present Illness Consult date: 04/11/20 Requesting physician: MICHEL MORA Reason for consult: COPD History of present illness: 64 y/o male smoker admitted with COPD exacerbation. Patient actually follows with Dr. Ocampo and is suppose to be on Symbicort and Spiriva which he is not using daily. He also does not use his nebulizer machine as regularly as he should. The patient started feeling ill on last and it gradually progress through the weekend which led to admission. Patient tried to leave AMA but was too short of breath to do so and was found to be hypoxic. Per patient, he was discharged on oxygen from the hospital in Jul but they came to take it away in September Or October. He was not using it either. Past History Past Medical History: COPD, hypertension, other (See HPI) Past Surgical History: hernia repair, total knee replacement Social history: single, smoking. denies: alcohol abuse, prescription drug abuse Family history: hypertension Medications and Allergies Allergies Allergy/AdvReac Type Severity Reaction Status Date / Time Penicillins Allergy Unknown Verified 04/08/20 12:12 Home Medications Medication Instructions Recorded Confirmed Last Taken Type lisinopriL [Zestril TAB] 40 mg PO DAILY 08/08/19 04/08/20 Unknown History Albuterol Mdi (or & Nicu Only) 2 puff IH QID PRN #8.5 gram 08/10/19 04/08/20 Unknown Rx [ProAir HFA Inhaler] Budesonide/Formoterol Fumarate 2 puff IH BID #1 hfa.aer.ad 08/10/19 04/08/20 Unknown Rx [Symbicort 160-4.5 Mcg Inhaler] Tiotropium [place] [Spiriva 2 each IH DAILY #1 mist.inhal 08/10/19 04/08/20 Unknown Rx Respimat] Aspirin EC [Halfprin EC] 81 mg PO DAILY 04/08/20 04/08/20 Unknown History Cyanocobalamin/Cobamamide [Vitamin 1 cap PO DAILY 04/08/20 04/08/20 Unknown History B-12 5,000 Mcg Tab Sl] Ipratropium/Albuterol Sulfate 1 ampul IH Q6HR 04/08/20 04/08/20 Unknown History [DUONEB *Not for PRN Use*] Active Meds: Active Medications Acetaminophen (Tylenol) 650 mg PO Q4H PRN PRN Reason: Pain MILD(1-3)/Fever >100.5/GONCALVES Albuterol (Proventil) 2.5 mg IH Q4HRT PRN PRN Reason: Shortness Of Breath Albuterol/Ipratropium (Duoneb *Not For Prn Use*) 1 ampul IH Q6HRT [facility] Last Admin: 04/11/20 09:13 Dose: 1 ampul Documented by: Amlodipine Besylate (Amlodipine) 5 mg PO QDAY [facility] Last Admin: 04/11/20 10:20 Dose: 5 mg Documented by: Aspirin (Halfprin Ec) 81 mg PO DAILY [facility] Last Admin: 04/11/20 10:20 Dose: 81 mg Documented by: Budesonide (Pulmicort) 0.5 mg IH Q12HRT [facility] Last Admin: 04/11/20 09:13 Dose: 0.5 mg Documented by: Cyanocobalamin (Vitamin B-12) 1,000 mcg PO QDAY [facility] Last Admin: 04/11/20 10:20 Dose: 1,000 mcg Documented by: Furosemide (Lasix) 40 mg IV QDAY [facility] Last Admin: 04/11/20 10:20 Dose: 40 mg Documented by: Levofloxacin/Dextrose (Levaquin 750mg/150ml) 750 mg in 150 mls @ 100 mls/hr IV Q24HR [facility]; Protocol Last Admin: 04/11/20 12:36 Dose: 100 mls/hr Documented by: Lisinopril (Zestril) 40 mg PO QDAY [facility] Last Admin: 04/11/20 10:20 Dose: 40 mg Documented by: Methylprednisolone Sodium Succinate (Solu-Medrol) 40 mg IV Q8HR [facility] Last Admin: 04/11/20 06:01 Dose: 40 mg Documented by: Ondansetron HCl (Zofran) 4 mg IV Q8H PRN PRN Reason: Nausea And Vomiting Sodium Chloride (Sodium Chloride Flush Syringe 10 Ml) 10 ml IV BID [facility] Last Admin: 04/11/20 10:20 Dose: 10 ml Documented by: Sodium Chloride (Sodium Chloride Flush Syringe 10 Ml) 10 ml IV PRN PRN PRN Reason: LINE FLUSH Tiotropium [place] (Spiriva) 2 puff IH Q24HRT [facility] Last Admin: 04/11/20 09:21 Dose: Not Given Documented by: Physical Examination Vital signs: Vital Signs Pulse Resp BP Pulse Ox 42 L 26 H 197/130 91 04/08/20 12:16 04/08/20 12:16 04/08/20 12:16 04/08/20 12:16 General appearance: no acute distress, alert Eyes: non-icteric ENT: oropharynx moist Neck: supple Effort: normal Ascultation: Bilateral: wheezes Percussion: Bilateral: not dull Tactile fremitus: Bilateral: normal Cardiovascular: regular rate and rhythm Gastrointestinal: normoactive bowel sounds, soft Extremities: no edema, pink and warm, pulses normal normal mental status, non-focal exam Results - Laboratory Findings CBC and BMP: 04/08/20 12:45 04/09/20 18:48 Abnormal lab findings: Abnormal Labs 04/08/20 04/09/20 04/09/20 12:45 06:58 18:48 Hgb 16.5 H Hct 47.3 H MCV 97 H MCH 34 H MCHC 35 H [place] % (Auto) 8.4 H Potassium 5.2 H BUN 25 H Glucose 115 H 139 H - Diagnostic Findings Chest x-ray: image reviewed CT scan - chest: image reviewed (severe emphysema) Assessment and Plan 64 y/o male with severe emphysema, chronic respiratory failure, admitted with COPD exacerbation. 1. Pulm- Agree with IV steroids at current dosing. I did increase the frequency on the duonebs to q4. Continue Pulmicort. Patient will need walk test prior to discharge but his room air sats should qualify him for O2 from admission. Long discussion with patient about need for daily meds, daily oxygen use and smoking cessation. He expressed understanding of all of these. The patient would benefit from 2D echo while in house to assess for pulmonary hypertension given his degree of emphysema. He did have a spirometry done which I am obtaining from my office and will either add an addendum to this note or my note tomorrow will include the numbers. Thank you for this consult. Will continue to follow along with you.
--- NOTE | 2020-04-11 14:45 | Progress Note ---
Assessment and Plan - Patient Problems (1) COPD with acute exacerbation Current Visit: Yes Status: Acute Plan to address problem: Telemetry oxygen Patient has been having to go deep breathing over the past couple days with a productive cough prior to presentation 04/08 CXR shows no acute abnormalities and no acute changes from previous CXR Home pulmonary regimen restarted IV steroid therapy Continuous pulse ox Pulmonary hygiene 04/08 COVID-19 PCR negative 07/2019 CXR shows: The lungs are hyperinflated suggesting COPD. Additionally there are bilateral lower lobe pulmonary opacities. 04/10 Lasix started Pulmonary consulted, appreciate recommendations 04/10 CT chest shows severe emphysema with resolution of previously seen nodular density in the left lower lobe which was most likely infectious/inflammatory in etiology. (2) Acute hypoxemic respiratory failure Current Visit: Yes Status: Acute Plan to address problem: SPO2 on room air in the emergency department was 87% Home pulmonary regimen resumed Pulmonary hygiene Supplemental oxygen as needed (3) HTN (hypertension) Current Visit: No Status: Chronic Qualifiers: Hypertension type: essential hypertension Qualified Code(s): I10 - Essential (primary) hypertension Plan to address problem: ACEi, CCB Blood pressure monitor per protocol 04/10 Lasix started (4) Nicotine dependence Current Visit: No Status: Chronic Qualifiers: Nicotine product type: cigarettes Substance use status: in withdrawal Qualified Code(s): F17.213 - Nicotine dependence, cigarettes, with withdrawal Plan to address problem: Smoking cessation counseling Consider TD nicotine while inhouse (5) DVT prophylaxis Current Visit: Yes Status: Acute Plan to address problem: SCD to bilateral lower extremities while in bed History Interval history: 64-year-old male with COPD, Nicotine Dependence, HTN presented to the emergency department on 04/08 with difficulty breathing over the past 3 days with persistently worsening symptoms over the same timeframe. He complains of decreased exercise intolerance, dyspnea on exertion, dyspnea at rest with no relief from increased numbers of therapy, increased productive cough yellowish s putum. In the emergency department his SPO2 on room air was 87% consistent with acute hypoxemic respiratory failure suspected secondary to COPD exacerbation. At the time of my examination patient states that he feels the same as yesterday. He still is having a productive green-yellow sputum and he complains of abdominal wall muscle pain from coughing. Pulmonology was consulted and patient received a follow-up CT of his chest. 10/19: COVID-19 PCR negative, hyperkalemic at 5.2 Kayexalate ordered. 04/10: Started on IV Lasix Hospitalist Physical - Constitutional Vitals: Temp Pulse Resp BP Pulse Ox 98.5 F 39 L 19 115/63 95 04/11/20 11:33 04/11/20 11:33 04/11/20 11:33 04/11/20 11:33 04/11/20 11:33 General appearance: Present: no acute distress - EENT Eyes: Present: PERRL, EOM intact ENT: hearing decreased, poor dentition - Neck Neck: Present: normal ROM - Respiratory Respiratory effort: normal Respiratory: bilateral: diminished, wheezing - Cardiovascular Rhythm: regular Heart Sounds: Present: S1 & S2. Absent: systolic murmur, diastolic murmur - Extremities Extremities: no ischemia, pulses intact, pulses symmetrical, No edema, normal temperature, normal color, Full ROM - Abdominal General gastrointestinal: soft, non-tender, non-distended, normal bowel sounds - Integumentary Integumentary: Present: warm, dry - Psychiatric Psychiatric: appropriate mood/affect, cooperative - Neurologic Neurologic: CNII-XII intact, no focal deficits, moves all extremities HEART Score - HEART Score Troponin: Troponin T < 0.010 ng/mL (0.00-0.029) 04/08/20 12:45 Results - Labs CBC & Chem 7: 04/08/20 12:45 04/09/20 18:48 Labs: Laboratory Last Values WBC 6.2 K/mm3 (4.5-11.0) 04/08/20 12:45 RBC 4.86 M/mm3 (3.65-5.03) 04/08/20 12:45 Hgb 16.5 gm/dl (11.8-15.2) H 04/08/20 12:45 Hct 47.3 % (35.5-45.6) H 04/08/20 12:45 MCV 97 fl (84-94) H 04/08/20 12:45 MCH 34 pg (28-32) H 04/08/20 12:45 MCHC 35 % (32-34) H 04/08/20 12:45 RDW 14.1 % (13.2-15.2) 04/08/20 12:45 Plt Count 183 K/mm3 (140-440) 04/08/20 12:45 Lymph % (Auto) 22.1 % (13.4-35.0) 04/08/20 12:45 [place] % (Auto) 8.4 % (0.0-7.3) H 04/08/20 12:45 Eos % (Auto) 4.2 % (0.0-4.3) 04/08/20 12:45 Baso % (Auto) 0.6 % (0.0-1.8) 04/08/20 12:45 Lymph # (Auto) 1.4 K/mm3 (1.2-5.4) 04/08/20 12:45 [place] # (Auto) 0.5 K/mm3 (0.0-0.8) 04/08/20 12:45 Eos # (Auto) 0.3 K/mm3 (0.0-0.4) 04/08/20 12:45 Baso # (Auto) 0.0 K/mm3 (0.0-0.1) 04/08/20 12:45 Seg Neutrophils % 64.7 % (40.0-70.0) 04/08/20 12:45 Seg Neutrophils # 4.0 K/mm3 (1.8-7.7) 04/08/20 12:45 Sodium 139 mmol/L (137-145) 04/09/20 18:48 Potassium 4.8 mmol/L (3.6-5.0) 04/09/20 18:48 Chloride 98.1 mmol/L (98-107) 04/09/20 18:48 Carbon Dioxide 28 mmol/L (22-30) 04/09/20 18:48 Anion Gap 18 mmol/L 04/09/20 18:48 BUN 25 mg/dL (9-20) H 04/09/20 18:48 Creatinine 1.0 mg/dL (0.8-1.3) 04/09/20 18:48 Estimated GFR > 60 ml/min 04/09/20 18:48 BUN/Creatinine Ratio 25 % 04/09/20 18:48 Glucose 139 mg/dL (75-100) H 04/09/20 18:48 Lactic Acid 1.40 mmol/L (0.7-2.0) 04/08/20 12:45 Calcium 10.2 mg/dL (8.4-10.2) 04/09/20 18:48 Total Creatine Kinase 147 units/L (55-170) 04/08/20 12:45 CK-MB (CK-2) 3.7 ng/mL (0.0-4.0) 04/08/20 12:45 CK-MB (CK-2) Rel Index 2.5 (0-4) 04/08/20 12:45 Troponin T < 0.010 ng/mL (0.00-0.029) 04/08/20 12:45 NT-Pro-B Natriuret Pep 711.2 pg/mL (0-900) 04/08/20 12:45 Nasal Screen MRSA (PCR) Negative (Negative) 04/09/20 00:01 Coronavirus (PCR) Negative (Negative) 04/09/20 10:51 Microbiology: Microbiology 04/08/20 12:45 Peripheral/Venous Blood Culture - Preliminary NO GROWTH AFTER 72 HOURS 04/08/20 12:45 Peripheral/Venous Blood Culture - Preliminary NO GROWTH AFTER 72 HOURS [place]/IV: Voiding Method Toilet IV Catheter Type [Left INT / Saline Lock Antecubital] Active Medications - Current Medications Current Medications: Generic Name Dose Route Start Last Admin Trade Name Freq PRN Reason Stop Dose Admin Acetaminophen 650 mg 04/08/20 20:30 Tylenol PO Q4H PRN Pain MILD(1-3)/Fever >100.5/GONCALVES Albuterol 2.5 mg 04/09/20 01:00 Proventil IH Q4HRT PRN Shortness Of Breath Albuterol/Ipratropium 1 ampul 04/11/20 16:00 Duoneb *Not For Prn Use* IH Q4HRT [facility] Amlodipine Besylate 5 mg 04/09/20 18:00 04/11/20 10:20 Amlodipine PO 5 mg QDAY [facility] Administration Aspirin 81 mg 04/09/20 10:00 04/11/20 10:20 Halfprin Ec PO 81 mg DAILY [facility] Administration Budesonide 0.5 mg 04/09/20 08:00 04/11/20 09:13 Pulmicort IH 0.5 mg Q12HRT [facility] Administration Cyanocobalamin 1,000 mcg 04/10/20 10:00 04/11/20 10:20 Vitamin B-12 PO 1,000 mcg QDAY [facility] Administration Furosemide 40 mg 04/11/20 10:00 04/11/20 10:20 Lasix IV 40 mg QDAY [facility] Administration Levofloxacin/Dextrose 750 mg in 150 mls @ 100 mls/hr 04/11/20 12:00 04/11/20 12:36 Levaquin 750mg/150ml IV 100 mls/hr Q24HR [facility] Administration Protocol Lisinopril 40 mg 04/09/20 10:00 04/11/20 10:20 Zestril PO 40 mg QDAY [facility] Administration Methylprednisolone Sodium Succinate 40 mg 04/08/20 22:00 04/11/20 06:01 Solu-Medrol IV 40 mg Q8HR [facility] Administration Ondansetron HCl 4 mg 04/08/20 20:30 Zofran IV Q8H PRN Nausea And Vomiting Sodium Chloride 10 ml 04/08/20 22:00 04/11/20 10:20 Sodium Chloride Flush Syringe 10 Ml IV 10 ml BID [facility] Administration Sodium Chloride 10 ml 04/08/20 20:30 Sodium Chloride Flush Syringe 10 Ml IV PRN PRN LINE FLUSH Tiotropium [place] 2 puff 04/09/20 09:00 04/11/20 09:21 Spiriva IH Not Given Q24HRT [facility]
--- NOTE | 2020-04-11 17:59 | Event Note ---
Date: 04/11/20 Pulmonary evaluation and recommendations noted and appreciated. Will request for echocardiogram to evaluate for pulmonary hypertension/RV and LV function Home oxygen evaluation, resting and ambulatory room air O2 sats Case management to assist with discharge planning, and to set up home O2.
[2020-04-12] MEDS: IPRATROPIUM/ALBUTEROL SULFATE 3 ML AMPUL.NEB IH SCH ×5 (00:20→19:46)
[2020-04-12] MEDS: methylPREDNISolone Sod Succinate 40 MG/1 ML INJ IV SCH ×3 (06:01→22:01)
[2020-04-12] MEDS: BUDESONIDE 0.5 MG/2 ML NEBU IH SCH ×2 (07:32→19:46)
[2020-04-12] MEDS: TIOTROPIUM 18 MCG CAP INHALATION IH SCH (10:13)
[2020-04-12] MEDS: CYANOCOBALAMIN (VIT B-12) 1000 MCG TAB PO SCH (10:56)
[2020-04-12] MEDS: ASPIRIN EC 81 MG TAB PO SCH (10:56)
[2020-04-12] MEDS: LISINOPRIL 40 MG TAB PO SCH (10:58)
[2020-04-12] MEDS: amLODIPine 5 MG TAB PO SCH (10:58)
[2020-04-12] MEDS: FUROSEMIDE 40 MG/4 ML INJ IV SCH (10:59)
--- NOTE | 2020-04-12 16:01 | Progress Note ---
Assessment and Plan 64 y/o male with severe emphysema, chronic respiratory failure, admitted with COPD exacerbation. 04/12/2020: increase steroids to 60q6. Continue BID pulmicort and scheduled duonebs. Continue supplemental O2. Echo back showing systolic heart failure. Given age, smoking history. Likely needs ischemic work up. Suggest Cardiology consult. Likely would benefit from some diuresis as well. This could be playing a major component in his dyspnea. 1. Pulm- Agree with IV steroids at current dosing. I did increase the frequency on the duonebs to q4. Continue Pulmicort. Patient will need walk test prior to discharge but his room air sats should qualify him for O2 from admission. Long discussion with patient about need for daily meds, daily oxygen use and smoking cessation. He expressed understanding of all of these. The patient would benefit from 2D echo while in house to assess for pulmonary hypertension given his degree of emphysema. He did have a spirometry done which I am obtaining from my office and will either add an addendum to this note or my note tomorrow will include the numbers. Thank you for this consult. Will continue to follow along with you. Subjective Date of service: 04/12/20 Interval history: No acute events. Gave patient a copy of Edgar from the office which shows very severe COPD. STill very winded just with walking a few feet with oxygen. Objective Vital Signs - 12hr 04/12/20 04/12/20 04/12/20 04:54 07:40 10:00 Temperature 97.5 F L Pulse Rate 67 Pulse Rate [ 68 Anterior Bilateral Throughout] Respiratory 16 Rate Respiratory 18 Rate [Anterior Bilateral Throughout] Blood Pressure 106/73 O2 Sat by Pulse 98 97 Oximetry 04/12/20 04/12/20 04/12/20 10:58 11:09 14:01 Temperature 97.9 F Pulse Rate 79 70 Pulse Rate [ 70 Anterior Bilateral Throughout] Respiratory 22 Rate Respiratory 22 Rate [Anterior Bilateral Throughout] Blood Pressure 120/73 143/87 O2 Sat by Pulse 91 Oximetry Constitutional: no acute distress, alert Eyes: non-icteric ENT: oropharynx moist Neck: supple Effort: normal Ascultation: Bilateral: wheezes Percussion: Bilateral: not dull Tactile fremitus: Bilateral: normal Cardiovascular: regular rate and rhythm Gastrointestinal: normoactive bowel sounds, soft Extremities: no edema, pink and warm, pulses normal Neurologic: normal mental status, non-focal exam CBC and BMP: 04/08/20 12:45 04/09/20 18:48 Abnormal lab findings: Abnormal Labs 04/08/20 04/09/20 04/09/20 12:45 06:58 18:48 Hgb 16.5 H Hct 47.3 H MCV 97 H MCH 34 H MCHC 35 H [place] % (Auto) 8.4 H Potassium 5.2 H BUN 25 H Glucose 115 H 139 H
--- NOTE | 2020-04-12 16:05 | Progress Note ---
Assessment and Plan - Patient Problems (1) COPD with acute exacerbation Current Visit: Yes Status: Acute Plan to address problem: Telemetry oxygen Patient has been having to go deep breathing over the past couple days with a productive cough prior to presentation 04/08 CXR shows no acute abnormalities and no acute changes from previous CXR Home pulmonary regimen restarted IV steroid therapy Continuous pulse ox Pulmonary hygiene 04/08 COVID-19 PCR negative 07/2019 CXR shows: The lungs are hyperinflated suggesting COPD. Additionally there are bilateral lower lobe pulmonary opacities. 04/10 Lasix started Pulmonary consulted, appreciate recommendations 04/11 CT chest shows severe emphysema with resolution of previously seen nodular density in the left lower lobe which was most likely infectious/inflammatory in etiology. 04/12 TTE shows moderate to severe dilated LV, mild LVH, depressed global left ventricular systolic function, EF 25 to 30%, mild MR and trace TR 04/12 post ambulatory SPO2 on RA is 83%; qualifies for home O2 which was ordered (2) HFrEF (heart failure with reduced ejection fraction) Current Visit: Yes Status: Chronic Plan to address problem: TTE obtained to evaluate for pulmonary hypertension 04/12 TTE shows moderate to severe dilated LV, mild LVH, depressed global left ventricular systolic function, EF 25 to 30%, mild MR and trace TR Patient is already on ACEi, diuretic and his CCB changed to a BB on 04/12 Follow-up with cardiology outpatient Strict intake and output Daily weights Cardiology consult (3) Acute hypoxemic respiratory failure Current Visit: Yes Status: Acute Plan to address problem: SPO2 on room air in the emergency department was 87% Home pulmonary regimen resumed Pulmonary hygiene Supplemental oxygen as needed Pulmonary consulted, appreciate recommendations (4) HTN (hypertension) Current Visit: No Status: Chronic Qualifiers: Hypertension type: essential hypertension Qualified Code(s): I10 - Essential (primary) hypertension Plan to address problem: ACEi, diuretic, CCB changed to BB on 04/12 Blood pressure monitoring per protocol 04/10 Lasix started (5) Nicotine dependence Current Visit: No Status: Chronic Qualifiers: Nicotine product type: cigarettes Substance use status: in withdrawal Qualified Code(s): F17.213 - Nicotine dependence, cigarettes, with withdrawal Plan to address problem: Smoking cessation counseling Consider TD nicotine while inhouse (6) DVT prophylaxis Current Visit: Yes Status: Acute Plan to address problem: SCD to bilateral lower extremities while in bed History Interval history: 64-year-old male with COPD, Nicotine Dependence, HTN presented to the emergency department on 04/08 with difficulty breathing over the past 3 days with persistently worsening symptoms over the same timeframe. He complains of decreased exercise intolerance, dyspnea on exertion, dyspnea at rest with no relief from increased numbers of therapy, increased productive cough yellowish sputum. In the emergency department his SPO2 on room air was 87% consistent with acute hypoxemic respiratory failure suspected secondary to COPD exacerbation. At the time my examination patient was returning from the restroom and did not have his oxygen in place. He stated that the RN will come in and do a ambulatory pulse ox on him. He stated that Dr. Rod had extensive conversation with him regarding his COPD and he verbalized understanding. Patient had a echocardiogram today. 04/09: COVID-19 PCR negative, hyperkalemic at 5.2 Kayexalate ordered. 04/10: Started on IV Lasix 04/11: f/u chest CT showed resolution of questionable lung nodule from CT chest earlier in the year Hospitalist Physical - Constitutional Vitals: Temp Pulse Resp BP Pulse Ox 97.9 F 70 22 143/87 91 04/12/20 11:09 04/12/20 14:01 04/12/20 14:01 04/12/20 11:09 04/12/20 11:09 - EENT ENT: poor dentition HEART Score - HEART Score Troponin: Troponin T < 0.010 ng/mL (0.00-0.029) 04/08/20 12:45 Results - Labs CBC & Chem 7: 04/08/20 12:45 04/09/20 18:48 Labs: Laboratory Last Values WBC 6.2 K/mm3 (4.5-11.0) 04/08/20 12:45 RBC 4.86 M/mm3 (3.65-5.03) 04/08/20 12:45 Hgb 16.5 gm/dl (11.8-15.2) H 04/08/20 12:45 Hct 47.3 % (35.5-45.6) H 04/08/20 12:45 MCV 97 fl (84-94) H 04/08/20 12:45 MCH 34 pg (28-32) H 04/08/20 12:45 MCHC 35 % (32-34) H 04/08/20 12:45 RDW 14.1 % (13.2-15.2) 04/08/20 12:45 Plt Count 183 K/mm3 (140-440) 04/08/20 12:45 Lymph % (Auto) 22.1 % (13.4-35.0) 04/08/20 12:45 [place] % (Auto) 8.4 % (0.0-7.3) H 04/08/20 12:45 Eos % (Auto) 4.2 % (0.0-4.3) 04/08/20 12:45 Baso % (Auto) 0.6 % (0.0-1.8) 04/08/20 12:45 Lymph # (Auto) 1.4 K/mm3 (1.2-5.4) 04/08/20 12:45 [place] # (Auto) 0.5 K/mm3 (0.0-0.8) 04/08/20 12:45 Eos # (Auto) 0.3 K/mm3 (0.0-0.4) 04/08/20 12:45 Baso # (Auto) 0.0 K/mm3 (0.0-0.1) 04/08/20 12:45 Seg Neutrophils % 64.7 % (40.0-70.0) 04/08/20 12:45 Seg Neutrophils # 4.0 K/mm3 (1.8-7.7) 04/08/20 12:45 Sodium 139 mmol/L (137-145) 04/09/20 18:48 Potassium 4.8 mmol/L (3.6-5.0) 04/09/20 18:48 Chloride 98.1 mmol/L (98-107) 04/09/20 18:48 Carbon Dioxide 28 mmol/L (22-30) 04/09/20 18:48 Anion Gap 18 mmol/L 04/09/20 18:48 BUN 25 mg/dL (9-20) H 04/09/20 18:48 Creatinine 1.0 mg/dL (0.8-1.3) 04/09/20 18:48 Estimated GFR > 60 ml/min 04/09/20 18:48 BUN/Creatinine Ratio 25 % 04/09/20 18:48 Glucose 139 mg/dL (75-100) H 04/09/20 18:48 Lactic Acid 1.40 mmol/L (0.7-2.0) 04/08/20 12:45 Calcium 10.2 mg/dL (8.4-10.2) 04/09/20 18:48 Total Creatine Kinase 147 units/L (55-170) 04/08/20 12:45 CK-MB (CK-2) 3.7 ng/mL (0.0-4.0) 04/08/20 12:45 CK-MB (CK-2) Rel Index 2.5 (0-4) 04/08/20 12:45 Troponin T < 0.010 ng/mL (0.00-0.029) 04/08/20 12:45 NT-Pro-B Natriuret Pep 711.2 pg/mL (0-900) 04/08/20 12:45 Nasal Screen MRSA (PCR) Negative (Negative) 04/09/20 00:01 Coronavirus (PCR) Negative (Negative) 04/09/20 10:51 Microbiology: Microbiology 04/08/20 12:45 Peripheral/Venous Blood Culture - Preliminary NO GROWTH AFTER 4 DAYS 04/08/20 12:45 Peripheral/Venous Blood Culture - Preliminary NO GROWTH AFTER 4 DAYS - Diagnostic Impressions Diagnostic Impressions: Echocardiogram 04/11/20 17:52 Transthoracic Echocardiogram Indication: Pulm HTN BP: 106/73 HR: 70 Conclusions *The left ventricular size is moderate to severely dilated. *Mild concentric left ventricular hypertrophy is observed. *Global left ventricular systolic function is severely decreased. *The estimated ejection fraction is 25-30%. *There is mild mitral regurgitation. *There is trace tricuspid regurgitation. Findings Left Ventricle: The left ventricular size is moderate to severely dilated. Mild concentric left ventricular hypertrophy is observed. Global left ventricular systolic function is severely decreased. The estimated ejection fraction is 25-30%. Left Atrium: The left atrial chamber size is normal. Right Ventricle: The right ventricular cavity size is normal. Right Atrium: The right atrial cavity size is normal. Aortic Valve: The aortic valve is trileaflet. The aortic valve leaflets are mildly thickened. There is no evidence of aortic regurgitation. There is no evidence of aortic stenosis. Mitral Valve: The mitral valve leaflets are mildly thickened. There is mild mitral regurgitation. There is no evidence of mitral stenosis. Tricuspid Valve: There is trace tricuspid regurgitation. No pulmonary hypertension is noted. Pulmonic Valve: There is mild pulmonic regurgitation. Pericardium: There is no pericardial effusion. Aorta: There is no dilatation of the aortic root. Venous: The inferior vena cava appears normal in size. Measurements Chambers 2D Name Value Normal Range IVSd (2D) 1.29 cm (0.6 - 1.1) LVPWd (2D) 1.31 cm (0.6 - 1.1) LVIDd (2D) 5.06 cm (3.7 - 5.6) LVIDs (2D) 4.56 cm (2 - 3.8) LV FS (2D) 9.87 % - EF Teichholz (2D) 21.53 % - Ao root diameter (2D) 3.73 cm (2 - 3.7) Volumes/Mass Name Value Normal Range LA ESV SP 4CH (A/L) 21.99 ml - LA ESV SP 2CH (A/L) 28.41 ml - LA ESV BP (A/L) 25.72 ml - LA ESV BP (A/L) index 12.02 ml/m2 - LA ESV SP 4CH (MOD) 19.38 ml - LA ESV SP 2CH (MOD) 26.91 ml - LA ESV BP (MOD) 23.1 ml - LA ESV BP (MOD) index 10.79 ml/m2 - Diastolic/Systolic Function Name Value Normal Range MV E-wave Vmax 0.28 m/sec - MV deceleration time 288.48 msec - MV A-wave Vmax 0.5 m/sec - MV E:A ratio 0.55 ratio - Aortic Valve Name Value Normal Range AV Vmax 1.11 m/sec - AV VTI 20.27 cm - AV peak gradient 4.89 mmHg - AV mean gradient 3.3 mmHg - LVOT diameter 2.59 cm - LVOT Vmax 0.77 m/sec - LVOT VTI 12.31 cm - LVOT peak gradient 2.39 mmHg - LVOT mean gradient 1.32 mmHg - SV LVOT 64.61 ml - CHENTE (continuity Vmax) 3.67 cm2 - CHENTE (continuity VTI) 3.19 cm2 - AR PHT 698.52 msec - AR peak gradient 70.04 mmHg - Tricuspid Valve Name Value Normal Range TR Vmax 1.8 m/sec - TR peak gradient 13 mmHg - RAP 3 mmHg - RVSP 16 mmHg - Pulmonic Valve/Qp:Qs Name Value Normal Range PV acceleration time 83.73 msec - Jordan/IV: Voiding Method Toilet IV Catheter Type [Left INT / Saline Lock Antecubital] Active Medications - Current Medications Current Medications: Generic Name Dose Route Start Last Admin Trade Name Freq PRN Reason Stop Dose Admin Acetaminophen 650 mg 04/08/20 20:30 Tylenol PO Q4H PRN Pain MILD(1-3)/Fever >100.5/GONCALVES Albuterol 2.5 mg 04/09/20 01:00 Proventil IH Q4HRT PRN Shortness Of Breath Albuterol/Ipratropium 1 ampul 04/12/20 20:00 Duoneb *Not For Prn Use* IH Q6HRT FELIPE Amlodipine Besylate 5 mg 04/09/20 18:00 04/12/20 10:58 Amlodipine PO 5 mg QDAY FELIPE Administration Aspirin 81 mg 04/09/20 10:00 04/12/20 10:56 Halfprin Ec PO 81 mg DAILY FELIPE Administration Budesonide 0.5 mg 04/09/20 08:00 04/12/20 07:32 Pulmicort IH 0.5 mg Q12HRT FELIPE Administration Cyanocobalamin 1,000 mcg 04/10/20 10:00 04/12/20 10:56 Vitamin B-12 PO 1,000 mcg QDAY FELIPE Administration Furosemide 40 mg 04/11/20 10:00 04/12/20 10:59 Lasix IV 40 mg QDAY FELIPE Administration Levofloxacin/Dextrose 750 mg in 150 mls @ 100 mls/hr 04/11/20 12:00 04/12/20 10:55 Levaquin 750mg/150ml IV 04/15/20 11:59 100 mls/hr Q24HR FELIPE Administration Protocol Lisinopril 40 mg 04/09/20 10:00 04/12/20 10:58 Zestril PO 40 mg QDAY FELIPE Administration Methylprednisolone Sodium Succinate 40 mg 04/08/20 22:00 04/12/20 13:33 Solu-Medrol IV 40 mg Q8HR FELIPE Administration Ondansetron HCl 4 mg 04/08/20 20:30 Zofran IV Q8H PRN Nausea And Vomiting Sodium Chloride 10 ml 04/08/20 22:00 04/12/20 10:56 Sodium Chloride Flush Syringe 10 Ml IV 10 ml BID FELIPE Administration Sodium Chloride 10 ml 04/08/20 20:30 Sodium Chloride Flush Syringe 10 Ml IV PRN PRN LINE FLUSH Tiotropium [place] 2 puff 04/09/20 09:00 04/12/20 10:13 Spiriva IH Not Given Q24HRT FELIPE
[2020-04-12] MEDS: METOPROLOL TARTRATE 25 MG TAB PO SCH (22:00)
[2020-04-13] MEDS: IPRATROPIUM/ALBUTEROL SULFATE 3 ML AMPUL.NEB IH SCH ×3 (02:47→14:37)
[2020-04-13] MEDS: methylPREDNISolone Sod Succinate 40 MG/1 ML INJ IV SCH ×2 (07:02→14:36)
[2020-04-13] MEDS: BUDESONIDE 0.5 MG/2 ML NEBU IH SCH (08:01)
[2020-04-13] MEDS: TIOTROPIUM 18 MCG CAP INHALATION IH SCH (08:04)
--- NOTE | 2020-04-13 09:55 | Consultation ---
History of Present Illness Consult date: 04/13/20 Requesting physician: MICHEL MORA Consult reason: congestive heart failure History of present illness: The pt is a 64 YO male with a past medical history of COPD, severe emphysema, chronic respiratory failure requiring home O2, HFrEF, CMP, HTN, tobacco use (currently smokes 1PPD). He is followed in our office by Dr. Merino. He presented on 04/08 with c/o progressively worsening SOB, wheezing, and productive cough wi th yellow sputum. He was subsequently admitted for management of A/C respiratory failure and COPD exacerbation. He underwent tte which showed EF 25-30%, LV mod - severely dilated, mild LVH, mild MR, and thus cardiology has been consulted for HF. Pt underwent lexiscan MPI stress test in our office in 01/2020 which was negative for significant ischemia, EF 35%. Pt was recommend cardiac catheterization due to CMP and recurrent chest pain and he ultimately declined LHC. Past History Past Medical History: COPD, hypertension, other (as per HPI) Past Surgical History: hernia repair, total knee replacement Social history: single, smoking. denies: alcohol abuse, prescription drug abuse Family history: hypertension Medications and Allergies Allergies Allergy/AdvReac Type Severity Reaction Status Date / Time Penicillins Allergy Unknown Verified 04/08/20 12:12 Home Medications Medication Instructions Recorded Confirmed Last Taken Type lisinopriL [Zestril TAB] 40 mg PO DAILY 08/08/19 04/08/20 Unknown History Albuterol Mdi (or & Nicu Only) 2 puff IH QID PRN #8.5 gram 08/10/19 04/08/20 Unknown Rx [ProAir HFA Inhaler] Budesonide/Formoterol Fumarate 2 puff IH BID #1 hfa.aer.[email or web address] 08/10/19 04/08/20 Unknown Rx [Symbicort 160-4.5 Mcg Inhaler] Tiotropium [place] [Spiriva 2 each IH DAILY #1 mist.inhal 08/10/19 04/08/20 Unknown Rx Respimat] Aspirin EC [Halfprin EC] 81 mg PO DAILY 04/08/20 04/08/20 Unknown History Cyanocobalamin/Cobamamide [Vitamin 1 cap PO DAILY 04/08/20 04/08/20 Unknown History B-12 5,000 Mcg Tab Sl] Ipratropium/Albuterol Sulfate 1 ampul IH Q6HR 04/08/20 04/08/20 Unknown History [DUONEB *Not for PRN Use*] Active Meds: Active Medications Acetaminophen (Tylenol) 650 mg PO Q4H PRN PRN Reason: Pain MILD(1-3)/Fever >100.5/GONCALVES Albuterol (Proventil) 2.5 mg IH Q4HRT PRN PRN Reason: Shortness Of Breath Albuterol/Ipratropium (Duoneb *Not For Prn Use*) 1 ampul IH Q6HRT [facility] Last Admin: 04/13/20 08:01 Dose: 1 ampul Documented by: Aspirin (Halfprin Ec) 81 mg PO DAILY [facility] Last Admin: 04/12/20 10:56 Dose: 81 mg Documented by: Budesonide (Pulmicort) 0.5 mg IH Q12HRT [facility] Last Admin: 04/13/20 08:01 Dose: 0.5 mg Documented by: Cyanocobalamin (Vitamin B-12) 1,000 mcg PO QDAY [facility] Last Admin: 04/12/20 10:56 Dose: 1,000 mcg Documented by: Furosemide (Lasix) 40 mg IV QDAY [facility] Last Admin: 04/12/20 10:59 Dose: 40 mg Documented by: Levofloxacin/Dextrose (Levaquin 750mg/150ml) 750 mg in 150 mls @ 100 mls/hr IV Q24HR [facility]; Protocol Stop: 04/15/20 11:59 Last Admin: 04/12/20 10:55 Dose: 100 mls/hr Documented by: Lisinopril (Zestril) 40 mg PO QDAY [facility] Last Admin: 04/12/20 10:58 Dose: 40 mg Documented by: Methylprednisolone Sodium Succinate (Solu-Medrol) 40 mg IV Q8HR [facility] Last Admin: 04/13/20 07:02 Dose: 40 mg Documented by: Metoprolol Tartrate (Metoprolol) 12.5 mg PO BID [facility] Last Admin: 04/12/20 22:00 Dose: 12.5 mg Documented by: Ondansetron HCl (Zofran) 4 mg IV Q8H PRN PRN Reason: Nausea And Vomiting Sodium Chloride (Sodium Chloride Flush Syringe 10 Ml) 10 ml IV BID [facility] Last Admin: 04/12/20 22:01 Dose: 10 ml Documented by: Sodium Chloride (Sodium Chloride Flush Syringe 10 Ml) 10 ml IV PRN PRN PRN Reason: LINE FLUSH Tiotropium [place] (Spiriva) 2 puff IH Q24HRT [facility] Last Admin: 04/13/20 08:04 Dose: Not Given Documented by: Review of Systems Constitutional: no weight loss, no weight gain, no fever, no chills, no sweats Ears, nose, mouth and throat: no ear pain, no nose pain, no sinus pressure, no sinus pain Cardiovascular: shortness of breath, dyspnea on exertion, decreased exercise tolerance, no chest pain, no orthopnea, no palpitations, no rapid/irregular heart beat, no edema, no syncope, no lightheadedness, no leg edema Respiratory: cough, cough with sputum, shortness of breath, dyspnea on exertion, congestion, wheezing, no pain on inspiration Gastrointestinal: no abdominal pain, no nausea, no vomiting, no diarrhea, no constipation, no change in bowel habits Genitourinary Male: no dysuria, no hematuria, no flank pain, no discharge, no urinary frequency, no urinary hesitancy Musculoskeletal: no neck stiffness, no neck pain, no shooting arm pain, no arm numbness/tingling, no low back pain, no shooting leg pain Integumentary: no rash, no pruritis, no redness, no sores, no wounds Neurological: no head injury, no paralysis, no weakness, no parathesias, no numbness, no tingling, no seizures, no syncope Psychiatric: no anxiety Endocrine: no cold intolerance, no heat intolerance Hematologic/Lymphatic: no easy bruising, no easy bleeding Allergic/Immunologic: no urticaria Physical Examination Vital Signs Pulse Resp BP Pulse Ox 42 L 26 H 197/130 91 04/08/20 12:16 04/08/20 12:16 04/08/20 12:16 04/08/20 12:16 General appearance: no acute distress HEENT: Positive: PERRL, Normocephaly, Mucus Membranes Moist Neck: Positive: neck supple, trachea midline Cardiac: Positive: Reg Rate and Rhythm, S1/S2 Lungs: Positive: Decreased Breath Sounds, Oxygen Neuro: Positive: Grossly Intact Abdomen: Negative: Tender Skin: Negative: Rash Musculoskeletal: No Pain Extremities: Absent: edema Results 04/08/20 12:45 04/09/20 18:48 - Imaging and Cardiology Echo: report reviewed (EF 25-30%, LV mod - severely dilated, mild LVH, mild MR,) EKG: pending EKG interpretations - Telemetry EKG Rhythm: Sinus Rhythm - EKG Sinus rhythms and dysrhythmias: sinus rhythm Ventricular dysrhythmias: ventricular premature com Assessment and Plan Pt has been receiving appropriate GDMT and IV diuretics. He appears to be nearing/at euvolemia. He may discharge from cardiology standpoint. At discharge, recommend PO lasix 40mg daily. Cont all other present cardiac management. Smoking cessation encouraged. Recommend pt follow up in our office with Dr. Smith within 1-2 weeks ([phone]). The patient has been seen in conjunction with Dr. Smith who agrees with the assessment and plan of care. - Patient Problems (1) HFrEF (heart failure with reduced ejection fraction) Current Visit: Yes Status: Chronic (2) Dilated cardiomyopathy Current Visit: Yes Status: Chronic (3) COPD with acute exacerbation Current Visit: Yes Status: Acute (4) Acute and chronic respiratory failure Current Visit: Yes Status: Acute (5) HTN (hypertension) Current Visit: Yes Status: Chronic Qualifiers: Hypertension type: essential hypertension Qualified Code(s): I10 - Essential (primary) hypertension (6) Tobacco use Current Visit: Yes Status: Chronic
[2020-04-13] MEDS: FUROSEMIDE 40 MG/4 ML INJ IV SCH (10:51)
[2020-04-13] MEDS: METOPROLOL TARTRATE 25 MG TAB PO SCH (10:51)
[2020-04-13] MEDS: LISINOPRIL 40 MG TAB PO SCH (10:52)
[2020-04-13] MEDS: CYANOCOBALAMIN (VIT B-12) 1000 MCG TAB PO SCH (10:52)
[2020-04-13 13:06] VITALS: BP 125/84
--- NOTE | 2020-04-13 13:22 | Discharge Summary ---
Providers - Providers Date of Admission: 04/08/20 20:30 Attending physician: MICHEL MORA 04/11/20 12:17 Consult to Physician [CONS] Routine Comment: Consulting Provider: BOB MYERS Physician Instructions: Reason For Exam: COPD exacerb 04/12/20 16:18 Consult to Physician [CONS] Routine Comment: Consulting Provider: RUBY MCFADDEN Physician Instructions: Reason For Exam: CHF Primary care physician: PR[employer]ED [employer] PROOFREADER Hospitalization Condition: Stable Hospital course: 64-year-old male with COPD, Nicotine Dependence (currently smokes 1PPD), HTN, severe emphysema, chronic respiratory failure requiring home O2, HFrEF, and CMP presented to the emergency department on 04/08 with difficulty breathing over the past 3 days with persistently worsening symptoms over the same timeframe. He complains of decreased exercise intolerance, dyspnea on exertion, dyspnea at rest with no relief from increased numbers of nebulizer therapy, increased productive cough yellowish sputum. In the emergency department his SPO2 on room air was 87% consistent with acute hypoxemic respiratory failure suspected secondary to COPD exacerbation. On 04/09 his COVID-19 PCR was negative and he was hyperkalemic at 5.2 and given Kayexalate with improvement. On 04/10 he was started on IV Lasix and pulmonary was consulted. He obtained a follow up chest CT on 04/11 which showed resolution of questionable lung nodule from CT chest earlier in the year. On 04/12 he underwent a TTE which showed moderate to severe dilated LV, mild LVH, depressed global left ventricular systolic function, EF 25 to 30%, mild MR and trace TR. Cardiology was consulted for evaluation of his heart failure on 04/12. Apparently patient underwent a Lexiscan MPI stress test on 01/2020 which was negative for significant ischemia and showed an EF of 35%. A cardiac catheterization was recommended due to cardiomyopathy and recurrent chest pain but he ultimately declined a left heart cath. He will need to follow-up with his primary care physician, pulmonology (Dr. Ocampo) and cardiology (Dr. [id number]-[phone]) within 1 to 2 weeks of discharge. (1) COPD with acute exacerbation Current Visit: Yes Status: Acute Plan to address problem: Patient has been having to go deep breathing over the past couple days with a productive cough prior to presentation 04/08 CXR shows no acute abnormalities and no acute changes from previous CXR Home pulmonary regimen restarted 04/08 COVID-19 PCR negative 07/2019 CXR shows: The lungs are hyperinflated suggesting COPD. Additionally there are bilateral lower lobe pulmonary opacities. Pulmonary consulted, appreciate recommendations 04/11 CT chest shows severe emphysema with resolution of previously seen nodular density in the left lower lobe which was most likely infectious/inflammatory in etiology. 04/12 TTE shows moderate to severe dilated LV, mild LVH, depressed global left ventricular systolic function, EF 25 to 30%, mild MR and trace TR 04/12 post ambulatory SPO2 on RA is 83%; qualifies for home O2 which was ordered IV steroid therapy while inpatient and will be discharged with p.o. prednisone with a taper. Follow-up with Dr. Ocampo within 1 to 2 weeks of discharge Primary care physician (2) HFrEF (heart failure with reduced ejection fraction) Current Visit: Yes Status: Chronic Plan to address problem: TTE obtained to evaluate for pulmonary hypertension 04/10 Lasix IV initiated 04/12 TTE shows moderate to severe dilated LV, mild LVH, depressed global left ventricular systolic function, EF 25 to 30%, mild MR and trace TR Patient is already on ACEi, diuretic and his CCB changed to a BB on 04/12, will be discharged with p.o. Lasix Follow-up with cardiology outpatient, Dr. Smith within 1 to 2 weeks of discharge Continue daily weights (3) Acute hypoxemic respiratory failure Current Visit: Yes Status: Acute Plan to address problem: SPO2 on room air in the emergency department was 87% Home pulmonary regimen resumed 04/12 post ambulatory SPO2 on RA is 83%; qualifies for home O2 which was ordered (4) HTN (hypertension) Current Visit: No Status: Chronic Qualifiers: Hypertension type: essential hypertension Qualified Code(s): I10 - Essential (primary) hypertension Plan to address problem: Continue current antihypertensive regimen Blood pressure monitoring per primary care physician (5) Nicotine dependence Current Visit: No Status: Chronic Qualifiers: Nicotine product type: cigarettes Substance use status: in withdrawal Qualified Code(s): F17.213 - Nicotine dependence, cigarettes, with withdrawal Plan to address problem: Smoking cessation counseling Consider TD nicotine while inhouse Disposition: - TO HOME OR SELFCARE Time spent for discharge: 35 Core Measure Documentation - Palliative Care Palliative Care/ Comfort Measures: Not Applicable - Core Measures Any of the following diagnoses?: history only Exam - Constitutional Vitals: Temp Pulse Resp BP Pulse Ox 97.6 F 72 22 125/84 96 04/13/20 11:57 04/13/20 11:57 04/13/20 11:57 04/13/20 11:57 04/13/20 11:57 General appearance: Present: no acute distress - EENT Eyes: Present: PERRL, EOM intact ENT: hearing intact, clear oral mucosa - Neck Neck: Present: supple, normal ROM - Respiratory Respiratory effort: normal Respiratory: bilateral: diminished - Cardiovascular Rhythm: regular Heart Sounds: Present: S1 & S2. Absent: systolic murmur, diastolic murmur - Extremities Extremities: no ischemia, pulses intact, pulses symmetrical, normal temperature, normal color, Full ROM Extremity abnormal: edema Peripheral Pulses: within normal limits - Abdominal General gastrointestinal: Present: soft, non-tender, non-distended, normal bowel sounds - Integumentary Integumentary: Present: clear, warm, dry - Musculoskeletal Musculoskeletal: strength equal bilaterally - Psychiatric Psychiatric: cooperative - Neurologic Neurologic: CNII-XII intact, no focal deficits, moves all extremities - Allied Health Allied health notes reviewed: nursing Plan Activity: advance as tolerated Diet: low fat, low salt, diabetic Special Instructions: record daily weights, record daily BP diary, smoking cessation, home oxygen via Additional Instructions: Follow-up with your primary care physician within 1-2 as of discharge. Follow up with cardiology and pulmonology within 1 to 2 weeks of discharge. Present to nearest emergency department or contact primary care physician if you experience worsening symptoms. Smoking cessation was strongly encouraged. Follow up with: [facility] [Provider Group] - 3-5 Days MAX SMITH MD [Staff Physician] - 7 Days SARAY OCAMPO MD [Staff Physician] - 7 Days Forms: AMA Form, Work/School Release Form(ED) Prescriptions: predniSONE [Deltasone] 20 mg PO QDAY #24 tablet Furosemide [Lasix TAB] 40 mg PO QDAY #30 tablet Metoprolol [Lopressor TAB] 12.5 mg PO BID #60 tablet Tiotropium [Spiriva] 2 puff IH Q24HRT #1 cap Benzonatate [Tessalon Perles] 100 mg PO Q8HR #10 capsule Cetirizine HCl [Zyrtec 10mg tab] 10 mg PO DAILY #5 tablet
[2020-04-13] MEDS ORDERED: FUROSEMIDE 40 MG/4 ML INJ IV ONE (14:15)
[2020-04-13] MEDS: ASPIRIN EC 81 MG TAB PO SCH (16:25)
== END 2020-04-13 17:18 | disposition home or self-care (01) | DRG 189 ==
LOC: ED 12:07 → 3A 20:30
PROVIDERS: ADMIT Internal Medicine; ATTEND Internal Medicine
DX: J96.21 Acute and chronic respiratory failure with hypoxia (principal); I42.0 Dilated cardiomyopathy; I50.22 Chronic systolic (congestive) heart failure; J43.9 Emphysema, unspecified; Z96.659 Presence of unspecified artificial knee joint; I27.20 Pulmonary hypertension, unspecified; I11.0 Hypertensive heart disease with heart failure; F17.210 Nicotine dependence, cigarettes, uncomplicated; Z20.828 Contact with and (suspected) exposure to other viral communicable diseases; E87.5 Hyperkalemia; Z82.49 Family history of ischemic heart disease and other diseases of the circulatory system; Z88.0 Allergy status to penicillin; Z71.6 Tobacco abuse counseling
CPT/HCPCS: 36415; 71045; 71260; 80048; 82140; 82550; 82553; 83880; 84484; 85025; 87040; 87641; 93005; 93306; 94640; 94644; 94760; 96365; 96375; 96376; 99406; G0378; J1940; J1956; J2920; J2930; J3475; Q9967; U0003

== ENCOUNTER 2020-11-02 00:37 | Emergency (ER) | payer OTHER ==
[2020-11-02] MEDS ORDERED: SODIUM CHLORIDE 0.9% 1000 ML 1,000 ML IV ONE (01:13)
--- NOTE | 2020-11-02 01:14 | Emergency Department Report ---
ED Syncope HPI - General Chief Complaint: Syncope Stated Complaint: Near syncope Time Seen by Provider: 11/02/20 00:53 Source: patient, EMS Exam Limitations: no limitations - History of Present Illness Initial Comments: Is a 65-year-old male that presents emergency room with complaints of near syncopal episode. Patient states he took two 1 mg pills of prazosin, which is a sleeping medication and went to the bathroom had a near syncopal episode while sitting on the toilet. Patient states he got lightheaded and weak. Patient states he never lost consciousness. Patient states he was aware of what was going on around him but just felt weak. Patient states he normally takes 1 mg but his doctor recently increased and tonight was the 1st time he took 2 mg of his sleeping medication. Patient denies chest pain. Patient denies shortness of breath. Patient states he is feeling back to normal but just tired. Patient denies recent travel. Patient denies recent international travel. Patient denies exposure to the novel coronavirus. Patient denies sick contacts. Patient denies fever and chills. Patient denies cough. Patient denies diarrhea. Patient denies coming in contact with anybody with symptoms of the novel coronavirus. Patient brought in by EMS. Report received from EMS. Patient was initially found to be hypotensive. patient was given fluids and his blood pressure immediately responded. Patient's current blood pressure is 113/60. Timing/Prior Episodes: single episode today Precipitating Factors: Positive: lightheadedness Context: sitting Loss of Consciousness: no loss of consciousness Current Symptoms: other (Fatigue). denies: blurred vision, chest pain, diaphoresis, dizziness, headache, injury, lightheadedness, loss of bladder control, loss of bowel control, motionless, nausea, pale, shallow/rapid breathing, weak/absent pulse, weakness - Related Data Allergies/Adverse Reactions: Allergies Penicillins Allergy (Verified 04/08/20 12:12) Unknown Home Medications: Ambulatory Orders lisinopriL [Zestril TAB] 40 mg PO DAILY 08/08/19 Albuterol Mdi (or & Nicu Only) [ProAir HFA Inhaler] 2 puff IH QID PRN #8.5 gram 08/10/19 Budesonide/Formoterol Fumarate [Symbicort 160-4.5 Mcg Inhaler] 2 puff IH BID #1 hfa.aer.ad 08/10/19 Tiotropium [place] [Spiriva Respimat] 2 each IH DAILY #1 mist.inhal 08/10/19 Aspirin EC [Halfprin EC] 81 mg PO DAILY 04/08/20 Cyanocobalamin/Cobamamide [Vitamin B-12 5,000 Mcg Tab Sl] 1 cap PO DAILY 04/08/20 Ipratropium/Albuterol Sulfate [DUONEB *Not for PRN Use*] 1 ampul IH Q6HR 04/08/20 AtorvaSTATin [Lipitor] 20 mg PO QHS tablet 04/13/20 Benzonatate [Tessalon Perles] 100 mg PO Q8HR #10 capsule 04/13/20 Cetirizine HCl [Zyrtec 10mg tab] 10 mg PO DAILY #5 tablet 04/13/20 Cyanocobalamin [Vitamin B-12] 1,000 mcg PO QDAY tablet 04/13/20 Furosemide [Lasix TAB] 40 mg PO QDAY #30 tablet 04/13/20 Metoprolol [Lopressor TAB] 12.5 mg PO BID #60 tablet 04/13/20 Tiotropium [Spiriva] 2 puff IH Q24HRT #1 cap 04/13/20 predniSONE [Deltasone] 20 mg PO QDAY #24 tablet 04/13/20 ED Review of Systems ROS: Stated complaint: PASSED OUT Other details as noted in HPI Constitutional: malaise. denies: chills, fever Eyes: denies: eye pain, eye discharge, vision change ENT: denies: ear pain, throat pain Respiratory: denies: cough, shortness of breath, wheezing Cardiovascular: denies: chest pain, palpitations Endocrine: no symptoms reported Gastrointestinal: denies: abdominal pain, nausea, diarrhea Genitourinary: denies: urgency, dysuria Musculoskeletal: denies: back pain, joint swelling, arthralgia Skin: denies: rash, lesions Neurological: as per HPI, weakness. denies: headache, paresthesias Psychiatric: denies: anxiety, depression Hematological/Lymphatic: denies: easy bleeding, easy bruising ED Past Medical Hx - Past Medical History Previous Medical History?: Yes Hx Hypertension: Yes Hx Congestive Heart Failure: No Hx Diabetes: No Hx Asthma: No Hx COPD: Yes Additional medical history: Insomnia - Surgical History Past Surgical History?: Yes Additional Surgical History: Left knee surgery, herniorrhaphy - Family History Family history: no significant - Social History Smoking Status: Current Every Day Smoker Substance Use Type: None - Medications Home Medications: Home Medications Medication Instructions Recorded Confirmed Last Taken Type lisinopriL [Zestril TAB] 40 mg PO DAILY 08/08/19 04/08/20 Unknown History Albuterol Mdi (or & Nicu Only) 2 puff IH QID PRN #8.5 gram 08/10/19 04/08/20 Unk nown Rx [ProAir HFA Inhaler] Budesonide/Formoterol Fumarate 2 puff IH BID #1 hfa.aer.ad 08/10/19 04/08/20 Unknown Rx [Symbicort 160-4.5 Mcg Inhaler] Tiotropium [place] [Spiriva 2 each IH DAILY #1 mist.inhal 08/10/19 04/08/20 Unknown Rx Respimat] Aspirin EC [Halfprin EC] 81 mg PO DAILY 04/08/20 04/08/20 Unknown History Cyanocobalamin/Cobamamide [Vitamin 1 cap PO DAILY 04/08/20 04/08/20 Unknown History B-12 5,000 Mcg Tab Sl] Ipratropium/Albuterol Sulfate 1 ampul IH Q6HR 04/08/20 04/08/20 Unknown History [DUONEB *Not for PRN Use*] AtorvaSTATin [Lipitor] 20 mg PO QHS tablet 04/13/20 Unknown Rx Benzonatate [Tessalon Perles] 100 mg PO Q8HR #10 capsule 04/13/20 Unknown Rx Cetirizine HCl [Zyrtec 10mg tab] 10 mg PO DAILY #5 tablet 04/13/20 Unknown Rx Cyanocobalamin [Vitamin B-12] 1,000 mcg PO QDAY tablet 04/13/20 Unknown Rx Furosemide [Lasix TAB] 40 mg PO QDAY #30 tablet 04/13/20 Unknown Rx Metoprolol [Lopressor TAB] 12.5 mg PO BID #60 tablet 04/13/20 Unknown Rx Tiotropium [Spiriva] 2 puff IH Q24HRT #1 cap 04/13/20 Unknown Rx predniSONE [Deltasone] 20 mg PO QDAY #24 tablet 04/13/20 Unknown Rx ED Physical Exam - General Limitations: No Limitations General appearance: alert, in no apparent distress - Head Head exam: Present: atraumatic, normocephalic - Eye Eye exam: Present: normal appearance - ENT ENT exam: Present: mucous membranes moist - Neck Neck exam: Present: normal inspection - Respiratory Respiratory exam: Present: normal lung sounds bilaterally. Absent: respiratory distress - Cardiovascular Cardiovascular Exam: Present: regular rate, normal rhythm. Absent: systolic murmur, diastolic murmur, rubs, gallop - GI/Abdominal GI/Abdominal exam: Present: soft, normal bowel sounds - Rectal Rectal exam: Present: deferred - Extremities Exam Extremities exam: Present: normal inspection - Back Exam Back exam: Present: normal inspection - Neurological Exam Neurological exam: Present: alert, oriented X3 - Psychiatric Psychiatric exam: Present: normal affect, normal mood - Skin Skin exam: Present: warm, dry, intact, normal color. Absent: rash ED Course Vital Signs 11/02/20 00:38 Temperature 98.4 F Pulse Rate 93 H Respiratory 16 Rate Blood Pressure 113/71 O2 Sat by Pulse 98 Oximetry - Reevaluation(s) Reevaluation #1: Patient's blood pressure has been stable. Patient states he is feeling better. Patient is alert and oriented x4. Patient's vital signs stable. I discussed all results and clinical findings with patient. I discussed plan of care with patient. Patient agrees with plan of care. Patient is stable for discharge. Patient will be discharged home. Patient given discharge instructions. Patient voiced understanding of discharge instructions. 11/02/20 03:14 ED Medical Decision Making - Lab Data Result diagrams: 11/02/20 01:23 11/02/20 01:23 - EKG Data -: EKG Interpreted by Me EKG shows normal: sinus rhythm, axis, intervals, ST-T waves Rate: normal - EKG Data Interpretation: LVH, other (Prolonged QRS) - Radiology Data Radiology results: report reviewed, image reviewed interpreted by me: Chest x-ray: No pneumonia, no pneumothorax, no foreign body, no osseous findings, no acute findings CHEST 1 VIEW 11/02/2020 1:08 AM INDICATION / CLINICAL INFORMATION: near syncope. COMPARISON: 04/08/2020 FINDINGS: SUPPORT DEVICES: None. HEART / MEDIASTINUM: Borderline. LUNGS / PLEURA: No significant pulmonary or pleural abnormality. No pneumothorax. ADDITIONAL FINDINGS: No significant additional findings. IMPRESSION: Borderline heart size. CT head without contrast INDICATION : Patient claims near syncope. TECHNIQUE: Axial imaging performed from the skull apex through the skull base without the use of contrast. All CT scans at this location are performed using CT dose reduction for [place] by means of automated exposure control. COMPARISON: None FINDINGS: Parenchyma: No mass, stroke or hemorrhage. Diffuse cerebral atrophy. Ventricles: Ventricles are normal in size and appear symmetric. Soft tissues: Soft tissues including the orbits appear normal. Bones: No acute osseous abnormality. Sinuses: Sinuses and mastoid air cells are clear. IMPRESSION: Mild diffuse cerebral atrophy. - Medical Decision Making Patient is a 65-year-old male that presents emergency room with complaints of near syncope. Patient states that he took an extra sleep medication. Patient's been using prazosin for his insomnia for many years. Patient states his doctor recently increased from 1 mg to 2 mg. Patient states he took 30 mg and then tried to use the restroom and essentially fell asleep or had a near syncopal episode on the toilet. Patient states he had decreased responsiveness but was aware of everything going around him. Patient brought in by EMS. Patient was found to be hypotensive. Patient given 600 cc of normal saline and his blood pressure improved. Patient has had normal blood pressure the entire time in the ER. Patient require any further fluids. Patient had labs done which were essentially unremarkable. Patient had a chest x-ray which was negative for acute findings. I personally reviewed the chest x-ray. Patient had a CT scan of the head which was negative for acute findings. Patient had an EKG which showed no acute findings. I personally reviewed the EKG. patient clinical findings. Be secondary to an accidental overdose of his prazosin/hypertensive/sleeping medication. Patient instructed to reduce his present back to 1 mg. Patient stable for discharge. Patient discharged home. - Differential Diagnosis Syncope, near syncope, med reaction, overdose Critical care attestation.: If time is entered above; I have spent that time in minutes in the direct care of this critically ill patient, excluding procedure time. ED Disposition Clinical Impression: Accidental overdose Qualifiers: Encounter type: initial encounter Qualified Code(s): T50.901A - Poisoning by unspecified drugs, medicaments and biological substances, accidental (unintent ional), initial encounter Hypotension Qualifiers: Hypotension type: unspecified hypotension type Qualified Code(s): I95.9 - Hypotension, unspecified Medication reaction Qualifiers: Encounter type: initial encounter Qualified Code(s): T50.905A - Adverse effect of unspecified drugs, medicaments and biological substances, initial encounter Disposition: TO HOME OR SELFCARE Is pt being admited?: No Does the pt Need Aspirin: No Condition: Stable Instructions: Hypotension, [id number], Preventing Poisoning, Adult Additional Instructions: Patient to follow-up with primary care in 2 to 3 days. Patient to reduce present back to 1 mg nightly. Patient to rest. Patient to increase water. Patient to avoid strenuous exercise or heavy lifting until cleared by primary care. Patient to take Tylenol or ibuprofen as needed for pain. Patient to return to the ER if condition worsens, changes or new symptoms arise. Patient to monitor blood pressure at home. Patient to keep a blood pressure log. Patient to take blood pressure log to follow-up appointments. Time of Disposition: 03:24
--- NOTE | 2020-11-02 01:35 | XRay Report ---
CHEST 1 VIEW 11/02/2020 1:08 AM INDICATION / CLINICAL INFORMATION: near syncope. COMPARISON: 04/08/2020 FINDINGS: SUPPORT DEVICES: None. HEART / MEDIASTINUM: Borderline. LUNGS / PLEURA: No significant pulmonary or pleural abnormality. No pneumothorax. ADDITIONAL FINDINGS: No significant additional findings. IMPRESSION: Borderline heart size. Signer Name: Wander Marroquin MD Signed: 11/02/2020 1:31 AM Workstation Name: [id number]
[2020-11-02 01:58] LABS: Basophils % (Auto) 0.3 % (0.0-1.8); Eosinophils % (Auto) 0.6 % (0.0-4.3); Hematocrit 42.1 % (35.5-45.6); Hemoglobin 14.5 gm/dl (11.8-15.2); Lymphocytes # (Auto) 1.3 K/mm3 (1.2-5.4); Lymphocytes % (Auto) 18.7 % (13.4-35.0); Mean Corpuscular HGB Conc 34 % (32-34); Mean Corpuscular Volume 95 fl (84-94); Monocytes # (Auto) 0.4 K/mm3 (0.0-0.8); Monocytes % (Auto) 6.2 % (0.0-7.3); Platelet Count 163 K/mm3 (140-440); Red Blood Count 4.41 M/mm3 (3.65-5.03); Red Cell Distribution Width 14.3 % (13.2-15.2)
[2020-11-02 02:22] LABS: Alanine Aminotransferase 9 units/L (7-56); Albumin 4.1 g/dL (3.9-5); BUN/Creatinine Ratio 17; Blood Urea Nitrogen 22 mg/dL (9-20); Hemolysis Index 3
--- NOTE | 2020-11-02 02:45 | Cat Scan Report ---
CT head without contrast INDICATION : Patient claims near syncope. TECHNIQUE: Axial imaging performed from the skull apex through the skull base without the use of con trast. All CT scans at this location are performed using CT dose reduction for [place] by means of aut omated exposure control. COMPARISON: None FINDINGS: Parenchyma: No mass, stroke or hemorrhage. Diffuse cerebral atrophy. Ventricles: Ventricles are normal in size and appear symmetric. Soft tissues: Soft tissues including the orbits appear normal. Bones: No acute osseous abnormality. Sinuses: Sinuses and mastoid air cells are clear. IMPRESSION: Mild diffuse cerebral atrophy. Signer Name: Wander Marroquin MD Signed: 11/02/2020 2:40 AM Workstation Name: [id number]
[2020-11-02 03:06] VITALS: BP 113/71
--- NOTE | 2020-11-06 17:27 | Electrocardiograph Report ---
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
== END 2020-11-02 05:30 | disposition home or self-care (01) ==
LOC: ED 00:37
DX: T44.6X1A Poisoning by alpha-adrenoreceptor antagonists, accidental (unintentional), initial encounter (principal); T50.905A Adverse effect of unspecified drugs, medicaments and biological substances, initial encounter; I95.9 Hypotension, unspecified; I10 Essential (primary) hypertension; J44.9 Chronic obstructive pulmonary disease, unspecified; F17.200 Nicotine dependence, unspecified, uncomplicated; Z79.899 Other long term (current) drug therapy; Z88.0 Allergy status to penicillin; Z98.890 Other specified postprocedural states; Y92.89 Other specified places as the place of occurrence of the external cause
CPT/HCPCS: 36415; 70450; 71045; 80053; 84484; 85025; 93005; 96360; 99284; J7030